=== PATIENT | female | born 1935 | race Caucasian/White ===

== ENCOUNTER 2017-01-28 13:45 | Inpatient (IN) | payer OTHER ==
[2017-01-28 13:49] VITALS: BMI 27.4
--- NOTE | 2017-01-28 14:35 | PDOC ---
History of Present Illness - General Chief Complaint: Back Pain Stated Complaint: BACK PAIN Time Seen by Provider: 01/28/17 14:34 History Source: Patient Exam Limitations: No Limitations - History of Present Illness Initial Comments: 01/28/17 15:13 Patient states had acute onset of pain in her right lower back last night while raking leaves. However states had also not been feeling well, had some chills and fevers last night and was vomiting area is concerned may have a urinary tract infection in addition to back strain. States has not seen a doctor for many years, takes no medications, has taken no meds for relief of same. 01/28/17 15:14 Occurred: reports: yesterday Severity: reports: mild, moderate Pain Location: reports: abdomen, back Method of Injury: Yes: unknown Modifying Factors: improves with: None Past History - Travel Traveled outside of the country in the last 30 days: No Close contact w/someone who was outside of country & ill: No - Past Medical History Allergies/Adverse Reactions: Allergies Allergy/AdvReac Type Severity Reaction Status Date / Time No Known Allergies Allergy Verified 01/28/17 13:52 Home Medications: Ambulatory Orders No Home Medications 0 dose .ROUTE UTDICT 10/14/13 Cephalexin Monohydrate [Keflex -] 500 mg PO Q8H #21 capsule 01/28/17 Other medical history: PATIENT DENIES MEDICAL HX - Immunization History Immunization Up to Date: Yes - Psycho/Social/Smoking Cessation Hx Anxiety: No Suicidal Ideation: No Smoking History: Never smoked Have you smoked in the past 12 months: No Hx Alcohol Use: No Drug/Substance Use Hx: No Substance Use Type: None Trauma Specific PMHX - Complaint Specific PMHX Back Injury: Yes Neck Injury: No Review of Systems - Review of Systems Able to Perform ROS?: Yes Is the patient limited Korean proficient: Yes Constitutional: Yes: Symptoms Reported, See HPI, Chills, Fever, Malaise, Weakness HEENTM: Yes: See HPI. No: Symptoms Reported Respiratory: Yes: See HPI. No: Symptoms reported, Cough ABD/GI: Yes: Symptoms Reported, Nausea, Vomiting (yesterday) Musculoskeletal: Yes: Symptoms Reported, See HPI, Back Pain (back pain, primarily on the right side), Muscle Pain, Muscle Weakness Integumentary: No: Symptoms Reported Neurological: No: Symptoms reported All Other Systems: Reviewed and Negative *Physical Exam - Vital Signs Last Vital Signs Temp Pulse Resp BP Pulse Ox 97.9 F 97 H 18 158/80 95 01/28/17 13:46 01/28/17 13:46 01/28/17 13:46 01/28/17 13:46 01/28/17 13:46 - Physical Exam General Appearance: Yes: Nourished, Appropriately Dressed, Apparent Distress, Mild Distress HEENT: positive: MELODY, Normal ENT Inspection, Normal Voice, TMs Normal, Pharynx Normal Neck: positive: Supple. negative: Lymphadenopathy (R), Lymphadenopathy (L) Respiratory/Chest: positive: Lungs Clear, Normal Breath Sounds Gastrointestinal/Abdominal: positive: Soft. negative: Tender Musculoskeletal: positive: Normal Inspection, CVA Tenderness (right side/but also site of mild MS spasm. Paravertebral, lumbar spine area), Decreased Range of Motion, Muscle Spasm Extremity: positive: Normal Inspection, Tender Integumentary: positive: Dry, Warm, Pale Neurologic: positive: hospitalist II-XII NML intact, Fully Oriented, Alert, Normal Mood/ Affect, Normal Response, Motor Strength 5/5 *DC/Admit/Observation/Transfer Diagnosis at time of Disposition: Urinary tract infection Qualifiers: Urinary tract infection type: acute cystitis Hematuria presence: without hematuria Qualified Code(s): N30.00 - Acute cystitis without hematuria - Discharge Dispostion Disposition: HOME Condition at time of disposition: Stable Admit: No - Patient Instructions Printed Discharge Instructions: DI for Urinary Tract Infection (UTI) Additional Instructions: Rest, drink lots of fluids: Teas, water, soups Avoid contact with others until fevers and symptoms resolved Lots of handwashing and good hygiene Continue [id number] medications for symptomatic relief Tylenol or Motrin for fever and pain Continue all of antibiotics until completed Followup with private physician in one week for repeat urinalysis/reevaluation Return to emergency department for worsened symptoms, fevers, dehydration
[2017-01-28] MEDS ORDERED: CEPHALEXIN MONOHYDRATE 500 MG CAPSULE (UD) PO ONE (15:27)
[2017-01-28] MEDS ORDERED: CEPHALEXIN MONOHYDRATE 500 MG CAPSULE (UD) ONE (15:32)
[2017-01-28 16:30] LABS: URINE APPEARANCE CLEAR; URINE BILIRUBIN NEGATIVE (NEGATIVE); URINE COLOR YELLOW; URINE GLUCOSE (UA) NEGATIVE (NEGATIVE); URINE KETONE TRACE (NEGATIVE); URINE NITRITE NEGATIVE (NEGATIVE); URINE UROBILINOGEN NEGATIVE E.U./dl (0.2-1.0)
[2017-01-28 16:47] LABS: URINE BLOOD 3+ (NEGATIVE); URINE LEUK ESTERASE TRACE (NEGATIVE); URINE PROTEIN 1+ (NEGATIVE)
[2017-01-28 16:50] LABS: URINE MUCUS RARE; URINE RBC 58 /hpf (0-3); URINE WBC 6 /hpf (3-5)
--- NOTE | 2017-01-28 16:55 | PDOC ---
*Physical Exam - Vital Signs Last Vital Signs Temp Pulse Resp BP Pulse Ox 97.9 F 97 H 18 158/80 95 01/28/17 13:46 01/28/17 13:46 01/28/17 13:46 01/28/17 13:46 01/28/17 13:46 - Physical Exam Comments: 01/28/17 20:57 Patient is an 81-year-old female who presented with atraumatic right flank pain radiating to the right lower quadrant with associated nausea and numerous episodes of nonbloody, nonbilious vomiting. Patient had initially been seen in [facility] where she was administered cephalexin for suspected UTI. REVIEW OF SYSTEMS CONSTITUTIONAL: No fever, no chills, no fatigue EYES: No visual changes ENT: No ear pain, no sore throat CARDIOVASCULAR: No chest pain, no palpitations RESPIRATORY: No cough, no SOB GI: + Flank pain; No abdominal pain, no nausea, no vomiting, no constipation, no diarrhea GENITOURINARY: No dysuria, no frequency, no hematuria MUSKULOSKELETAL: No backpain, no joint pain, no myalgias SKIN: No rash NEURO: No headache EXAMINATION CONSTITUTIONAL: Well-appearing; well-nourished; in no apparent distress HEAD: Normocephalic; atraumatic EYES: PERRL; EOM intact ENMT: External appears normal; mm-dry; NECK: Supple; non-tender; no cervical lymphadenopathy CARD: Normal S1, S2; no murmurs, rubs, or gallops RESP: Normal chest excursion with respiration; breath sounds clear and equal bilaterally; no wheezes, rhonchi, or rales ABD: Soft, non-distended; non-tender; no palpable organomegaly, no palpable hernias; + right cva ttp EXT: Normal ROM in all four extremities; non-tender to palpation; distal pulses intact SKIN: Warm, dry, no rash NEURO: No focal neurological deficiencies. <Semaj Thorne - Last Filed: 01/28/17 20:56> - Vital Signs Last Vital Signs Temp Pulse Resp BP Pulse Ox 97.9 F 86 16 145/76 98 01/28/17 13:46 01/28/17 16:30 01/28/17 16:30 01/28/17 16:30 01/28/17 16:30 <Ngoc Mueller - Last Filed: 01/28/17 22:55> Heart Score/ECG Review #1 ECG reviewed & interpreted by me at: 22:37 (Vent Rate: 92 bpm. Normal sinus rhythm. Low voltage QRS. Nonspecific ST abnormality.) <Ngoc Mueller - Last Filed: 01/28/17 22:55> ED Treatment Course - LABORATORY CBC & Chemistry Diagram: 01/28/17 17:30 01/28/17 18:30 - ADDITIONAL ORDERS Additional order review: Laboratory Results 01/28/17 15:45 Urine Color Yellow Urine Appearance Clear Urine pH 6.0 Ur Specific [place] 1.019 Urine Protein 1+ H Urine Glucose (UA) Negative Urine Ketones Trace H Urine Blood 3+ H Urine Nitrite Negative Urine Bilirubin Negative Urine Urobilinogen Negative Ur Leukocyte Esterase Trace H Urine RBC 58 Urine WBC 6 Ur Epithelial Cells Rare Urine Mucus Rare - Medications Given in the ED: ED Medications Discontinued Medications Generic Name Dose Route Start Last Admin Trade Name Freq PRN Reason Stop Dose Admin Cephalexin HCl 500 mg 01/28/17 15:27 01/28/17 15:39 Keflex - PO 01/28/17 15:28 500 mg ONCE ONE Administration <Semaj Thorne - Last Filed: 01/28/17 20:56> - LABORATORY CBC & Chemistry Diagram: 01/28/17 17:30 01/28/17 18:30 - ADDITIONAL ORDERS Additional order review: Laboratory Results 01/28/17 01/28/17 01/28/17 18:30 17:30 15:45 Sodium 138 Cancelled Potassium 4.3 Cancelled Chloride 101 Cancelled Carbon Dioxide 26 Cancelled Anion Gap 11 Cancelled BUN 29 H Cancelled Creatinine 1.6 H Cancelled Creat Clearance w eGFR 30.86 Cancelled Random Glucose 106 Cancelled Calcium 8.9 Cancelled Total Bilirubin 0.8 Cancelled AST 26 Cancelled ALT 27 Cancelled Alkaline Phosphatase 93 Cancelled Total Protein 7.6 Cancelled Albumin 3.9 Cancelled Urine Color Yellow Urine Appearance Clear Urine pH 6.0 Ur Specific [place] 1.019 Urine Protein 1+ H Urine Glucose (UA) Negative Urine Ketones Trace H Urine Blood 3+ H Urine Nitrite Negative Urine Bilirubin Negative Urine Urobilinogen Negative Ur Leukocyte Esterase Trace H Urine RBC 58 Urine WBC 6 Ur Epithelial Cells Rare Urine Mucus Rare 01/28/17 17:30 RBC 4.27 MCV 92.2 MCHC 34.5 RDW 13.4 MPV 9.0 Neutrophils % 80.6 Lymphocytes % 8.9 Monocytes % 10.1 Eosinophils % 0.1 Basophils % 0.3 - Medications Given in the ED: ED Medications Discontinued Medications Generic Name Dose Route Start Last Admin Trade Name Jackie PRN Reason Stop Dose Admin Cephalexin HCl 500 mg 01/28/17 15:27 01/28/17 15:39 Keflex - PO 01/28/17 15:28 500 mg ONCE ONE Administration Sodium Chloride 500 mls @ 500 mls/hr 01/28/17 17:05 01/28/17 17:20 Normal Saline - IV 01/28/17 18:04 500 mls/hr ASDIR STA Administration Dextrose/Sodium Chloride 1,000 mls @ 100 mls/hr 01/28/17 19:45 01/28/17 20:20 D5-1/2ns - IV 100 mls/hr ASDIR CLARK Administration Tamsulosin HCl 0.4 mg 01/28/17 20:56 01/28/17 21:35 Flomax - PO 01/28/17 20:57 0.4 mg ONCE ONE Administration <Ngoc Mueller - Last Filed: 01/28/17 22:55> Medical Decision Making - Medical Decision Making 01/28/17 20:59 Patient is an 81-year-old female who presents with signs and symptoms of right- sided nephrolithiasis. In the ER, patient is afebrile and nontoxic appearing with mild right CVA tenderness to palpation and dry mucous membranes. Urinalysis reveals numerous RBCs per high-power field. CBC reveals minimal leukocytosis with normal differential. CMP reveals elevated BUN/creatinine when compared to previous consistent with acute renal insufficiency. CT that and pelvis reveals a mid ureteral 4 x 3 mm stone with mild hydronephrosis. At this time, I believe patient should be placed in observation for continuous hydration and urological evaluation. Case discussed with Dr. Whitman, he advises administration of Flomax. <Semaj Thorne - Last Filed: 01/28/17 20:56> *DC/Admit/Observation/Transfer - Discharge Dispostion Admit: Yes <Semaj Thorne - Last Filed: 01/28/17 20:56> - Attestations Scribe Attestion: 01/28/17 22:55 Documentation prepared by Ngoc Mueller, acting as medical claims processor for Semaj Thorne MD. <Ngoc Mueller - Last Filed: 01/28/17 22:55> Diagnosis at time of Disposition: Kidney stone on right side, Acute renal insufficiency Nausea & vomiting Qualifiers: Vomiting type: unspecified Vomiting Intractability: non-intractable Qualified Code(s): R11.2 - Nausea with vomiting, unspecified - Discharge Dispostion Condition at time of disposition: Stable - Prescriptions - Referrals - Patient Instructions - Post Discharge Activity
[2017-01-28] MEDS ORDERED: SODIUM CHLORIDE 500 ML IV STA (17:05)
[2017-01-28 17:50] LABS: BASOPHIL 0.3 % (0-2.0); EOSINOPHIL 0.1 % (0-4.5); MCH 31.8 pg (25.7-33.7); MCHC 34.5 g/dl (32.0-36.0); MEAN CELL VOLUME 92.2 fl (80-96); NEUTROPHILS 80.6 % (42.8-82.8); PLATELET COUNT 268 K/MM3 (134-434); RDW 13.4 % (11.6-15.6); WHITE BLOOD COUNT 12.8 K/mm3 (4.0-10.0)
[2017-01-28 19:25] LABS: ALBUMIN 3.9 g/dl (3.4-5.0); BILIRUBIN,TOTAL 0.8 mg/dL (0.2-1.0); CALCIUM 8.9 mg/dL (8.5-10.1); CREATININE 1.6 mg/dL (0.55-1.02); TOT PROT 7.6 g/dl (6.4-8.2)
[2017-01-28] MEDS ORDERED: DEXTROSE 5%-0.45% SALINE 1,000 ML IV SCH (19:45)
[2017-01-28] MEDS ORDERED: TAMSULOSIN HCL 0.4 MG CAP.ER.24H (FP) PO ONE (20:56)
--- NOTE | 2017-01-28 21:11 | PN ---
<Libia Zarate - Last Filed: 01/28/17 21:11> Teaching Attending Note Name of Resident: Isabel Courtney <Dilcia Dwyer - Last Filed: 01/28/17 23:47> Teaching Attending Note ATTENDING PHYSICIAN STATEMENT I saw and evaluated the patient. I reviewed the resident's note and discussed the case with the resident. I agree with the resident's findings and plan as documented. SUBJECTIVE: 81 yo F who presents to the ED with sudden onset of R lower back pain today. Patient notes her back pain has been chronic for the past 5 months, has been intermittent and is alleviated when sitting down. However today, patient states she was raking leaves and immediately experienced sharp back pain, constant, 10/ 10 in severity, radiating to R groin. She reports associated nausea, vomiting ( nonbloody, nonbilious). The patient recalls episodes of chills/cold sweats since last night and reports to the ED for further evaluation. She denies taking any pain medications for relief. She was initially seen in the [facility] for her back pain and was treated with cephalexin for suspected UTI. She denies chest pain, headache or dizziness. She denies fever or constipation. She denies dysuria, frequency, urgency or hematuria. PMHx: Knee pain PSHx: Cataracts surgery Social Hx: Denies toxic habits Allergies: NKA OBJECTIVE: Last Vital Signs Temp Pulse Resp BP Pulse Ox 97.9 F 86 16 145/76 98 01/28/17 13:46 01/28/17 16:30 01/28/17 16:30 01/28/17 16:30 01/28/17 16:30 GENERAL: Awake, alert, and fully oriented, in no acute distress HEENT: Atraumatic. PERRLA, EOMI. Moist mucosa. No JVD. +R Ear with cerumen. + Diminished hearing. LUNGS: No distress, speaks full sentences, clear to auscultation bilaterally HEART: Regular rate and rhythm, normal S1 and S2, no murmurs, rubs or gallops, peripheral pulses normal and equal bilaterally. ABDOMEN: Soft, nontender, normoactive bowel sounds. No guarding, no rebound. No masses EXTREMITIES:+R lumbar tenderness. + L wrist slightly enlarged. Normal inspection , Normal range of motion, no edema. No clubbing or cyanosis. NEUROLOGICAL: Cranial nerves II through XII grossly intact. Normal speech, gait deferred. No focal sensorimotor deficits SKIN: Warm, Dry, normal turgor, no rashes or lesions noted. CBCD WBC 12.8 K/mm3 (4.0-10.0) H 01/28/17 17:30 RBC 4.27 M/mm3 (3.60-5.2) 01/28/17 17:30 Hgb 13.6 GM/dL (10.7-15.3) 01/28/17 17:30 Hct 39.3 % (32.4-45.2) 01/28/17 17:30 MCV 92.2 fl (80-96) 01/28/17:30 MCHC 34.5 g/dl (32.0-36.0) 01/28/17 17:30 RDW 13.4 % (11.6-15.6) 01/28/17 17:30 Plt Count 268 K/MM3 (134-434) 01/28/17 17:30 MPV 9.0 fl (7.5-11.1) 01/28/17 17:30 CMP Sodium 138 mmol/L (136-145) 01/28/17 18:30 Potassium 4.3 mmol/L (3.5-5.1) 01/28/17 18:30 Chloride 101 mmol/L (98-107) 01/28/17 18:30 Carbon Dioxide 26 mmol/L (21-32) 01/28/17 18:30 Anion Gap 11 (8-16) 01/28/17 18:30 BUN 29 mg/dL (7-18) H 01/28/17 18:30 Creatinine 1.6 mg/dL (0.55-1.02) H 01/28/17 18:30 Creat Clearance w eGFR 30.86 (>60) 01/28/17 18:30 Calcium 8.9 mg/dL (8.5-10.1) 01/28/17 18:30 Total Bilirubin 0.8 mg/dL (0.2-1.0) 01/28/17 18:30 AST 26 U/L (15-37) 01/28/17 18:30 ALT 27 U/L (12-78) 01/28/17 18:30 Alkaline Phosphatase 93 U/L (45-117) 01/28/17 18:30 Total Protein 7.6 g/dl (6.4-8.2) 01/28/17 18:30 Albumin 3.9 g/dl (3.4-5.0) 01/28/17 18:30 IMAGING: CT Abdomen and Pelvis Impression: A 4 x 3 mm right mid ureteral calculus is seen with resultant mild hydronephrosis. No other definite urinary tract calculus is identified. Moderate to large hiatal hernia. Very small umbilical hernia containing fat only. Left-sided colonic diverticulosis. Possible cholelithiasis versus representing focal gallbladder wall calcification adjacent to the neck. If clinically indicated correlate with sonography. The partially imaged lower lung ruth demonstrate minimal to mild patchy bilateral interstitial thickening which could be on the basis of small airway disease. There is mild linear discoid atelectasis versus linear parenchymal scarring within the lingula. ASSESSMENT AND PLAN: 81 yo F with PMHx of knee pain who presents with R flank pain and is being admitted for observation. IVF Percocet PRN Urology consult Flomax 1 g Ceftriaxone--daily Repeat CBC and BMP in AM Documentation prepared by Dilcia Dwyer, acting as medical sales for Libia Zarate MD. Problem List - Problems (1) MILA (acute kidney injury) Code(s): N17.9 - ACUTE KIDNEY FAILURE, UNSPECIFIED (2) Nephrolithiasis Code(s): N20.0 - CALCULUS OF KIDNEY (3) Hydronephrosis Code(s): N13.30 - UNSPECIFIED HYDRONEPHROSIS
[2017-01-28] MEDS ORDERED: TAMSULOSIN HCL 0.4 MG CAP.ER.24H (FP) ONE (21:27)
--- NOTE | 2017-01-28 21:47 | HP ---
CHIEF COMPLAINT: right lower back pain PCP: none HISTORY OF PRESENT ILLNESS: 81 yr old woman with no significant medical hx(no physician f/u in 5yrs) presents to ED with continuos right sided lower back pain radiating to groin since 6pm yesterday. It has been intermittent for past 5mo, would go away when she sat down. Since raking the leaves yesterday evening it has been continuos with no alleviating or exacerbating factors. She also had multiple episodes of non-bilious, non-bloody vomiting consisting of food, associated with chills. denies previous episodes of renal calculi or family hx of renal calculi. She takes atleast 2 tums per day for past several months for acid reflex symptoms. Acid relfex is characterized as burning sensation from her stomach up to her chest, occurs mostly when she has acidic foods such as red pasta sauce and citrus food. She is able to lie flat at night without difficulty or symptoms worsening. Denies cough at night or metallic taste in her mouth. She has not been eating or taking care of herself properly since her 5 yrs ago. Last mammo 5 yrs ago, thinks everything was normal. ER course was notable for: (1) diarrhea x3 in ED (2) CT abdomen (3) keflex 500mg po - one dose Recent Travel: none PAST MEDICAL HISTORY: cataracts seasonal allergies PAST SURGICAL HISTORY: cataract surgery x2: 3yrs ago, 4 yrs ago Social History: Smoking: never Alcohol: never Drugs: never Family History: no hx of nephrolithiasis mom and older brother with [place] age 50 mom, and several siblings with DM Allergies No Known Allergies Allergy to medications or food (Verified 01/28/17 13:52) Last Vital Signs Temp Pulse Resp BP Pulse Ox 98.3 F 75 20 115/64 96 01/29/17 06:07 01/29/17 06:07 01/29/17 06:07 01/29/17 06:07 01/28/17 23:38 HOME MEDICATIONS: Home Medications Medication Instructions Recorded No Home Medications 0 dose .ROUTE UTDICT 10/14/13 Cephalexin Monohydrate [Keflex -] 500 mg PO Q8H #21 capsule 01/28/17 Cephalexin Monohydrate [Keflex -] 500 mg PO Q8H #21 capsule 01/28/17 REVIEW OF SYSTEMS CONSTITUTIONAL: Present: chills, Absent: fever, diaphoresis, generalized weakness, malaise, loss of appetite, weight change HEENT: Present: decreased b/l hearing, uses hearing aides Absent: rhinorrhea, nasal congestion, throat pain, throat swelling, difficulty swallowing, mouth swelling, ear pain, eye pain, visual changes CARDIOVASCULAR: Absent: chest pain, syncope, palpitations, irregular heart rate, lightheadedness , peripheral edema RESPIRATORY: Absent: cough, shortness of breath, dyspnea with exertion, orthopnea, wheezing, stridor, hemoptysis GASTROINTESTINAL: Present:vomiting, diarrhea, Absent: abdominal pain, abdominal distension, nausea, constipation, melena, hematochezia GENITOURINARY: Absent: dysuria, frequency, urgency, hesitancy, hematuria, flank pain, genital pain MUSCULOSKELETAL: Present:back pain, Absent: myalgia, arthralgia, joint swelling, neck pain SKIN: Absent: rash, itching, pallor HEMATOLOGIC/IMMUNOLOGIC: Absent: easy bleeding, easy bruising, lymphadenopathy, frequent infections ENDOCRINE: Absent: unexplained weight gain, unexplained weight loss, heat intolerance, cold intolerance NEUROLOGIC: Absent: headache, focal weakness or paresthesias, dizziness, unsteady gait, seizure, mental status changes, bladder or bowel incontinence PSYCHIATRIC: Absent: anxiety, depression, suicidal or homicidal ideation, hallucinations. PHYSICAL EXAMINATION GENERAL: Awake, alert, and fully oriented, in no acute distress. HEAD: Normal with no signs of trauma. EYES: Pupils equal, round and reactive to light, extraocular movements intact, sclera anicteric, conjunctiva clear. No lid lag. EARS, NOSE, THROAT: Ears normal, nares patent, oropharynx clear without exudates. Moist mucous membranes. NECK: Normal range of motion, supple without lymphadenopathy, JVD, or masses. LUNGS: Breath sounds equal, clear to auscultation bilaterally. No wheezes, and no crackles. No accessory muscle use. HEART: Regular rate and rhythm, normal S1 and S2 without murmur, rub or gallop. ABDOMEN: Soft, nontender, not distended, normoactive bowel sounds, no guarding, no rebound, no masses. No hepatomegaly or splenomegaly. MUSCULOSKELETAL: Normal range of motion at all joints. No bony deformities or tenderness. no CVA tenderness. right lower drying machine back tender with deep palpation. UPPER EXTREMITIES: 2+ pulses, warm, well-perfused. No cyanosis. No clubbing. No peripheral edema. LOWER EXTREMITIES: 2+ pulses, warm, well-perfused. No calf tenderness. trace edema in right le. b/l bunions, all toes with thickened yellow nails. no ulcers , skin intact. NEUROLOGICAL: Cranial nerves II-XII intact. Normal speech. PSYCHIATRIC: Cooperative. Good eye contact. Appropriate mood and affect. SKIN: Warm, dry flaky skin, no rashes or lesions noted, normal capillary refill. Laboratory Results - last 24 hr 01/28/17 01/28/17 01/28/17 15:45 17:30 17:30 WBC 12.8 H RBC 4.27 Hgb 13.6 Hct 39.3 MCV 92.2 MCHC 34.5 RDW 13.4 Plt Count 268 MPV 9.0 Neutrophils % 80.6 Lymphocytes % 8.9 Monocytes % 10.1 Eosinophils % 0.1 Basophils % 0.3 Sodium Cancelled Potassium Cancelled Chloride Cancelled Carbon Dioxide Cancelled Anion Gap Cancelled BUN Cancelled Creatinine Cancelled Creat Clearance w eGFR Cancelled Random Glucose Cancelled Calcium Cancelled Total Bilirubin Cancelled AST Cancelled ALT Cancelled Alkaline Phosphatase Cancelled Total Protein Cancelled Albumin Cancelled Urine Color Yellow Urine Appearance Clear Urine pH 6.0 Ur Specific [place] 1.019 Urine Protein 1+ H Urine Glucose (UA) Negative Urine Ketones Trace H Urine Blood 3+ H Urine Nitrite Negative Urine Bilirubin Negative Urine Urobilinogen Negative Ur Leukocyte Esterase Trace H Urine RBC 58 Urine WBC 6 Ur Epithelial Cells Rare Urine Mucus Rare 01/28/17 18:30 WBC RBC Hgb Hct MCV MCHC RDW Plt Count MPV Neutrophils % Lymphocytes % Monocytes % Eosinophils % Basophils % Sodium 138 Potassium 4.3 Chloride 101 Carbon Dioxide 26 Anion Gap 11 BUN 29 H Creatinine 1.6 H Creat Clearance w eGFR 30.86 Random Glucose 106 Calcium 8.9 Total Bilirubin 0.8 AST 26 ALT 27 Alkaline Phosphatase 93 Total Protein 7.6 Albumin 3.9 Urine Color Urine Appearance Urine pH Ur Specific [place] Urine Protein Urine Glucose (UA) Urine Ketones Urine Blood Urine Nitrite Urine Bilirubin Urine Urobilinogen Ur Leukocyte Esterase Urine RBC Urine WBC Ur Epithelial Cells Urine Mucus CT abdomen: A 4 x 3 mm right mid ureteral calculus is seen with resultant mild hydronephrosis. No other definite urinary tract calculus is identified. Moderate to large hiatal hernia. Very small umbilical hernia containing fat only. Left-sided colonic diverticulosis. Possible cholelithiasis versus representing focal gallbladder wall calcification adjacent to the neck. If clinically indicated correlate with sonography. The partially imaged lower lung ruth demonstrate minimal to mild patchy bilateral interstitial thickening which could be on the basis of small airway disease. There is mild linear discoid atelectasis versus linear parenchymal scarring within the lingula. ASSESSMENT/PLAN: 81 yr old woman with no significant past medical hx found to have nephrolithiasis with hydronephrosis placed under observation for dehydration. #Nephrolithiais with hydronephrosis - IVF NS @125ml/hr - flomax - strain urine - keflex 500mg po BID for UTI, pending urine cx - Urology consult Dr. Durand #MILA - likely from renal calculi - IVF - Urine electrolytes, osm #Vomiting - no repeat episodes in ED, feels better, hungry - trial diet #CT findings of gallbladder - outpatient f/u with pcp or GI for possible sonogram as indicated #DVT - SCD's, anticipate short stay #Dispo - f/u with PCP as outpatient Visit type - Emergency Visit Emergency Visit: Yes ED Registration Date: 01/28/17 Care time: The patient presented to the Emergency Department on the above date and was hospitalized for further evaluation of their emergent condition. - New Patient This patient is new to me today: Yes Date on this admission: 01/28/17 - Critical Care Critical Care patient: No
--- NOTE | 2017-01-29 09:19 | EKG ---
Test Reason : Blood Pressure : / mmHG Vent. Rate : 092 BPM Atrial Rate : 092 BPM P-R Int : 204 ms QRS Dur : 066 ms QT Int : 344 ms P-R-T Axes : 072 -01 053 degrees QTc Int : 425 ms NORMAL SINUS RHYTHM LOW VOLTAGE QRS NONSPECIFIC ST ABNORMALITY ABNORMAL ECG WHEN COMPARED WITH ECG OF 12-APR-2011 11:52, QRS DURATION HAS DECREASED Confirmed by STEVEN MARIE MD ([id number]) on 01/29/2017 9:18:44 AM Referred By: Confirmed By:STEVEN MARIE MD
[2017-01-29 10:00] LABS: MCH 32.1 pg (25.7-33.7); MCHC 34.5 g/dl (32.0-36.0); MEAN CELL VOLUME 93.1 fl (80-96); MEAN PLT VOLUME 7.7 fl (7.5-11.1); PLATELET COUNT 218 K/MM3 (134-434); RDW 13.2 % (11.6-15.6); WHITE BLOOD COUNT 6.8 K/mm3 (4.0-10.0)
[2017-01-29 10:31] LABS: CALCIUM 8.9 mg/dL (8.5-10.1); COCKROFT - GAULT 41.4035; CREATININE 1.2 mg/dL (0.55-1.02)
[2017-01-29] MEDS: CEPHALEXIN MONOHYDRATE 500 MG CAPSULE (UD) PO SCH ×2 (10:52→21:31)
[2017-01-29] MEDS: SODIUM CHLORIDE 1,000 ML IV SCH ×2 (11:04→18:44)
[2017-01-29 12:56] LABS: URINE CREATININE 58.3 mg/dL
--- NOTE | 2017-01-29 14:06 | PN ---
Teaching Attending Note Name of Resident: Coery Sánchez ATTENDING PHYSICIAN STATEMENT I saw and evaluated the patient. I reviewed the resident's note and discussed the case with the resident. I agree with the resident's findings and plan as documented. SUBJECTIVE: Patient says pain has improved. OBJECTIVE: Vital Signs Period Temp Pulse Resp BP Sys/Deleon Pulse Ox Last 24 Hr 98.0 F-98.3 F 73-87 16-20 115-167/64-76 96-98 HEART: S1 S2, RRR LUNGS: Clear ABDOMEN: Soft, non-tender, non-distended, normal BS EXTREMITIES: No edema ASSESSMENT AND PLAN: This is an 81-year-old woman with no past medical history who presented to the ER with right flank pain radiating to right groin. 1. Acute kidney injury - Improving - Continue IV fluid - Monitor BUN, creatinine 2. Renal colic secondary to right mid-ureteral stone with mild right hydroureteronephrosis - Continue IV fluid - Pain is controlled - Urology consult 3. Possible biliary colic secondary to cholelithiasis/gallbladder neck stone - Surgery consult
--- NOTE | 2017-01-29 15:25 | PN ---
Physical Exam: SUBJECTIVE: Patient seen and examined Pt is awake, alert and oriented x3 No s/s of distress no more back or flank pain No fever or chills No n/v OBJECTIVE: Vital Signs Period Temp Pulse Resp BP Sys/Deleon Pulse Ox Last 24 Hr 97.9 F-98.3 F 73-87 16-20 115-167/64-73 96-96 GENERAL: The patient is awake, alert, and fully oriented, in no acute distress. HEAD: Normal with no signs of trauma. NECK: Trachea midline, full range of motion, supple. LUNGS: Breath sounds equal, clear to auscultation bilaterally, no wheezes, no crackles, no accessory muscle use. HEART: Regular rate and rhythm, S1, S2 ABDOMEN: Soft, nontender, nondistended, normoactive bowel sounds, no guarding, no rebound, no hepatosplenomegaly, no masses. EXTREMITIES: 2+ pulses, warm, well-perfused, no edema. NEUROLOGICAL:. Normal speech, gait not observed. PSYCH: Normal mood, normal affect. SKIN: Warm, dry, normal turgor, no rashes or lesions noted Laboratory Results - last 24 hr 01/29/17 01/29/17 01/29/17 06:00 06:00 09:15 WBC 6.8 D RBC 3.95 Hgb 12.7 Hct 36.8 MCV 93.1 MCHC 34.5 RDW 13.2 Plt Count 218 MPV 7.7 D Sodium Potassium Chloride Carbon Dioxide Anion Gap BUN Creatinine Random Glucose Calcium Ur Random Sodium Cancelled 33 Ur Random Potassium Cancelled 9.9 Ur Random Chloride Cancelled 17 Urine Creatinine 58.3 01/29/17 09:15 WBC RBC Hgb Hct MCV MCHC RDW Plt Count MPV Sodium 141 Potassium 4.1 Chloride 109 H Carbon Dioxide 22 Anion Gap 10 BUN 24 H Creatinine 1.2 H D Random Glucose 100 Calcium 8.9 Ur Random Sodium Ur Random Potassium Ur Random Chloride Urine Creatinine Active Medications Generic Name Dose Route Start Last Admin Trade Name Freq PRN Reason Stop Dose Admin Cephalexin HCl 500 mg 01/29/17 10:00 01/29/17 10:52 Keflex - PO 500 mg BID CLARK Administration Sodium Chloride 1,000 mls @ 125 mls/hr 01/28/17 22:00 01/29/17 11:04 Normal Saline - IV 125 mls/hr ASDIR [facility] Administration CBC, BMP 01/29/17 09:15 01/29/17 09:15 Laboratory Tests 01/29/17 01/29/17 06:00 06:00 Ur Random Sodium 33 Ur Random Potassium 9.9 Ur Random Chloride Cancelled 17 Urine Creatinine 58.3 ASSESSMENT/PLAN: 81 year old female presented to the ED with complaint of right low back pain that radiate anteriorly accompanied by n/v. Pt was found to have ureteral stone. Ureteral Stone CT abdomen/pelvis showed 4*3mn stone with hydronephrosis NS at 125ml/h Zofran 4mg IV q6h Morphine 2mg IV prn urology Dr Whitman consulted MILA Cr 1.6, BUN 29 on Admission urine lytes, urine creatine FENA 0.48%, less than 1 MILA is due to prerenal IV fluid NS At 125ml/h Cr 1.2, BUN 24, Improved Continue IV fluid UTI Wbc 12.8n UA with trace leuk, negative nitrite, wbc 6 Pt has no dysuria , no hematuria but increased urinary frequency Urine culture pending Placed on Keflex PO BID Continue antibiotic pending urine culture result Cholelithiasis CT showed possible gallbladder stone US gallbladder done and showed impacted stone to neck of gallbladder, gallbladder polyp, calcification of gallbladder wall Gallbladder polyp 8mm, at increased risk for turning into cancer when more than 1 cm Gallbladder wall calcification which may be rt to chronic cholecystitis, worry about porcelain gallbladder which increased the risk for malignancy Either way gallbladder stone, polyp, calcification, definitive treatment is surgery Surgery consulted Dr Lux LEWIS Start pt on Ranitidine PO BID 150mg FEN Fluid NS at 125ml/h Electrolytes: no abnormalities Nutrition: low fat diet DVT prophylaxis: SCD, early ambulation Disposition: Keep in medsurg pending Visit type - Emergency Visit Emergency Visit: Yes ED Registration Date: 01/28/17 Care time: The patient presented to the Emergency Department on the above date and was hospitalized for further evaluation of their emergent condition. - New Patient This patient is new to me today: Yes Date on this admission: 01/29/17 - Critical Care Critical Care patient: No - Discharge Referral Referred to [facility] Med P.C.: No
--- NOTE | 2017-01-29 16:48 | CONSULT ---
Consult Consult Specialty:: Surgery Reason for Consultation:: Abdominal pain - History of Present Illness History of Present Illness: C/O sudden onset of pain on the right side of her back, radiating anteriorly towards the right flank, 2 days ago. Denies any nausea, or vomiting. Wants to eat. - History Source History Provided By: Patient Limitations to Obtaining History: No Limitations - Past Medical History ...: No - Alcohol/Substance Use Hx Alcohol Use: No - Smoking History Smoking history: Never smoked Have you smoked in the past 12 months: No Home Medications - Allergies Allergies/Adverse Reactions: Allergies Allergy/AdvReac Type Severity Reaction Status Date / Time No Known Allergies Allergy Verified 01/28/17 13:52 - Home Medications Home Medications: Ambulatory Orders No Home Medications 0 dose .ROUTE UTDICT 10/14/13 Cephalexin Monohydrate [Keflex -] 500 mg PO Q8H #21 capsule 01/28/17 Cephalexin Monohydrate [Keflex -] 500 mg PO Q8H #21 capsule 01/28/17 Physical Exam Vital Signs: Vital Signs Temperature 97.9 F 01/29/17 14:50 Pulse Rate 80 01/29/17 14:50 Respiratory Rate 20 01/29/17 14:50 Blood Pressure 146/68 01/29/17 14:50 O2 Sat by Pulse Oximetry (%) 96 01/29/17 05:49 Gastrointestinal: Yes: WNL, Normal Bowel Sounds, Soft, Abdomen, Obese Labs: CBC, BMP 01/29/17 09:15 01/29/17 09:15 Imaging - Results Cat Scan: Report Reviewed Ultrasound: Report Reviewed (Right midureteral calculs with mild hydronephrosis , gallbladder calculus at the neck , with a gallbladder polyp.) Problem List - Problems (1) Calculus of gallbladder Code(s): K80.20 - CALCULUS OF GALLBLADDER W/O CHOLECYSTITIS W/O OBSTRUCTION Qualifiers: Cholecystitis presence: without cholecystitis Biliary obstruction: without biliary obstruction Qualified Code(s): K80.20 - Calculus of gallbladder without cholecystitis without obstruction (2) 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 Cholecystectomy later. Patient is explained .
[2017-01-29] MEDS ORDERED: ONDANSETRON 4 MG/2 ML VIAL IVPUSH PRN (17:12)
[2017-01-29] MEDS ORDERED: INFLUENZA VACCINE 45 MCG/0.5 ML (MDV 16-17) IM ONE (21:00)
[2017-01-29] MEDS: RANITIDINE HCL 150 MG TABLET (FP) PO SCH (21:31)
[2017-01-30] MEDS: SODIUM CHLORIDE 1,000 ML IV SCH ×2 (01:16→10:07)
--- NOTE | 2017-01-30 09:14 | PN ---
Teaching Attending Note Name of Resident: Corey Sánchez ATTENDING PHYSICIAN STATEMENT I saw and evaluated the patient. I reviewed the resident's note and discussed the case with the resident. I agree with the resident's findings and plan as documented. SUBJECTIVE: Patient says she had right-sided abdominal pain radiating across her abdomen overnight. OBJECTIVE: Vital Signs Period Temp Pulse Resp BP Sys/Deleon Pulse Ox Last 24 Hr 97.9 F-98.4 F 80-86 20-20 138-155/68-71 96-96 HEART: S1 S2, RRR LUNGS: Clear ABDOMEN: Soft, non-tender, non-distended, normal BS EXTREMITIES: No edema ASSESSMENT AND PLAN: This is an 81-year-old woman with no past medical history who presented to the ER with right flank pain radiating to right groin. 1. Acute kidney injury - Improving - Continue IV fluid - Monitor BUN, creatinine 2. Renal colic secondary to right mid-ureteral stone with mild right hydroureteronephrosis and possible UTI - Continue IV fluid - Pain is controlled - Urine culture contaminated - Continue Keflex - Awaiting urology consult 3. Possible biliary colic secondary to cholelithiasis/gallbladder neck stone and gallbladder polyp - Surgery consult appreciated - Plan for cholecystectomy
[2017-01-30] MEDS: CEPHALEXIN MONOHYDRATE 500 MG CAPSULE (UD) PO SCH ×2 (10:03→21:11)
[2017-01-30] MEDS: RANITIDINE HCL 150 MG TABLET (FP) PO SCH ×2 (10:03→21:11)
--- NOTE | 2017-01-30 12:44 | PN ---
Physical Exam: SUBJECTIVE: Patient seen and examined Pt say she is feeling well this morning But had right flank/ abdominal pain during the night in right inguinal region the pain was not too severe and pt declined pain medication NO fever or chills No n/v pt tolerating food well OBJECTIVE: Vital Signs Period Temp Pulse Resp BP Sys/Deleon Pulse Ox Last 24 Hr 98.0 F-98.4 F 84-86 20-20 138-155/68-71 96-96 GENERAL: The patient is awake, alert, and fully oriented, in no acute distress. HEAD: Normal with no signs of trauma. NECK: Trachea midline, full range of motion, supple. LUNGS: Breath sounds equal, clear to auscultation bilaterally, no wheezes, no crackles, no accessory muscle use. HEART: Regular rate and rhythm, S1, S2 ABDOMEN: Soft, nontender, nondistended, normoactive bowel sounds, no guarding, no rebound, no hepatosplenomegaly, no masses. EXTREMITIES: 2+ pulses, warm, well-perfused, no edema. NEUROLOGICAL:. Normal speech, gait not observed. PSYCH: Normal mood, normal affect. SKIN: Warm, dry, normal turgor, no rashes or lesions noted Active Medications Generic Name Dose Route Start Last Admin Trade Name Freq PRN Reason Stop Dose Admin Cephalexin HCl 500 mg 01/29/17 10:00 01/30/17 10:03 Keflex - PO 500 mg BID CLARK Administration Sodium Chloride 1,000 mls @ 75 mls/hr 01/30/17 08:08 01/30/17 10:07 Normal Saline - IV 75 mls/hr ASDIR CLARK Administration Morphine Sulfate 2 mg 01/29/17 17:13 Morphine Injection - IVPUSH Q4H PRN PAIN Ondansetron HCl 4 mg 01/29/17 17:12 Zofran Injection IVPUSH Q6H PRN NAUSEA AND/OR VOMITING Ranitidine HCl 150 mg 01/29/17 22:00 01/30/17 10:03 Zantac - PO 150 mg BID CLARK Administration CBC, BMP 01/29/17 09:15 01/29/17 09:15 ASSESSMENT/PLAN: 81 year old female presented to the ED with complaint of right low back pain that radiate anteriorly accompanied by n/v. Pt was found to have ureteral stone. Ureteral Stone CT abdomen/pelvis showed 4*3mn stone with hydronephrosis NS at 75ml/h Zofran 4mg IV q6h Morphine 2mg IV prn urology Dr Whitman consulted Abdominal KUB to see if stone is moving, passing MILA Cr 1.6, BUN 29 on Admission urine lytes, urine creatine FENA 0.48%, less than 1 MILA is due to prerenal IV fluid NS At 75ml/h Cr 1.2, BUN 24, Improved Continue IV fluid UTI Wbc 12.8 UA with trace leuk, negative nitrite, wbc 6 on admission Pt has no dysuria , no hematuria but increased urinary frequency Urine culture contaminated WBC 6.8 on keflex Continue antibiotic for [address] showed possible gallbladder stone US gallbladder done and showed impacted stone to neck of gallbladder, gallbladder polyp, calcification of gallbladder wall Gallbladder polyp 8mm, at increased risk for turning into cancer when more than 1 cm Gallbladder wall calcification which may be rt to chronic cholecystitis, worry about porcelain gallbladder which increased the risk for malignancy Either way gallbladder stone, polyp, calcification, definitive treatment is surgery Surgery consulted Dr Wasserman Pt to have cholecystectomy next week cardiology consult for clearance GERD Start pt on Ranitidine PO BID 150mg FEN Fluid NS at 75ml/h Electrolytes: no abnormalities Nutrition: low fat diet DVT prophylaxis: SCD, early ambulation Disposition: Keep in medsur pending urology eval Visit type - Emergency Visit Emergency Visit: Yes ED Registration Date: 01/29/17 Care time: The patient presented to the Emergency Department on the above date and was hospitalized for further evaluation of their emergent condition. - New Patient This patient is new to me today: Yes - Critical Care Critical Care patient: No - Discharge Referral Referred to [facility] Med P.C.: No
--- NOTE | 2017-01-30 12:51 | CON.GU ---
Consult Consult Specialty:: Urology - History of Present Illness History of Present Illness: 81 yo female w 2 days right flank pain and nausea No f/c/ns voiding freely - History Source History Provided By: Patient, Medical Record - Past Medical History ...: No - Alcohol/Substance Use Hx Alcohol Use: No - Smoking History Smoking history: Never smoked Have you smoked in the past 12 months: No Home Medications - Allergies Allergies/Adverse Reactions: Allergies Allergy/AdvReac Type Severity Reaction Status Date / Time No Known Allergies Allergy Verified 01/28/17 13:52 - Home Medications Home Medications: Ambulatory Orders No Home Medications 0 dose .ROUTE UTDICT 10/14/13 Cephalexin Monohydrate [Keflex -] 500 mg PO Q8H #21 capsule 01/28/17 Cephalexin Monohydrate [Keflex -] 500 mg PO Q8H #21 capsule 01/28/17 Review of Systems - Review of Systems Genitourinary: reports: Flank Pain, Frequency, Urgency Physical Exam- Vital Signs: Vital Signs Temperature 98.0 F 01/30/17 06:00 Pulse Rate 84 01/30/17 06:00 Respiratory Rate 20 01/30/17 06:00 Blood Pressure 138/68 01/30/17 06:00 O2 Sat by Pulse Oximetry (%) 96 01/30/17 05:00 Constitutional: Yes: No Distress Cardiovascular: Yes: Regular Rate and Rhythm Respiratory: Yes: WNL Gastrointestinal: Yes: Soft (mild right CVAT) Imaging - Results Cat Scan: Report Reviewed Problem List - Problems (1) Kidney stone on right side Assessment/Plan: 81 yo female w right renal colic and 4 mm midureteral stone. pain improved Wbc improved Will observe give 2 more days to pass Cont iv abx Strain urine KUB Code(s): N20.0 - CALCULUS OF KIDNEY
--- NOTE | 2017-01-30 14:09 | PN ---
Progress Note, Physician - Current Medication List Current Medications: Active Medications Cephalexin HCl (Keflex -) 500 mg PO BID [facility] Last Admin: 01/30/17 10:03 Dose: 500 mg Sodium Chloride (Normal Saline -) 1,000 mls @ 75 mls/hr IV ASDIR [facility] Last Admin: 01/30/17 10:07 Dose: 75 mls/hr Morphine Sulfate (Morphine Injection -) 2 mg IVPUSH Q4H PRN PRN Reason: PAIN Ondansetron HCl (Zofran Injection) 4 mg IVPUSH Q6H PRN PRN Reason: NAUSEA AND/OR VOMITING Ranitidine HCl (Zantac -) 150 mg PO BID [facility] Last Admin: 01/30/17 10:03 Dose: 150 mg - Objective Vital Signs: Vital Signs Temperature 98.0 F 01/30/17 06:00 Pulse Rate 84 01/30/17 06:00 Respiratory Rate 20 01/30/17 06:00 Blood Pressure 138/68 01/30/17 06:00 O2 Sat by Pulse Oximetry (%) 96 01/30/17 05:00 Problem List - Problems (1) Calculus of gallbladder Code(s): K80.20 - CALCULUS OF GALLBLADDER W/O CHOLECYSTITIS W/O OBSTRUCTION Qualifiers: Cholecystitis presence: without cholecystitis Biliary obstruction: without biliary obstruction Qualified Code(s): K80.20 - Calculus of gallbladder without cholecystitis without obstruction (2) 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 No nausea, no vomiting. Abdomen is soft , not tender. note noted , expect the ureteral calculus to pass spontaneously. She also has a gallbladder calculus at the neck with a 8 mm. polyp. Patient is made aware of the need for cholecystectomy, for gallbladder calculus and polyp. She will be scheduled for surgery on 02/01/2017.
[2017-01-30] MEDS: morphine CARPU-JECT 2 MG/1 ML DISP.SYRIN IVPUSH PRN (21:11)
[2017-01-31] MEDS: SODIUM CHLORIDE 1,000 ML IV SCH (02:30)
[2017-01-31] MEDS: morphine CARPU-JECT 2 MG/1 ML DISP.SYRIN IVPUSH PRN ×2 (06:13→09:01)
--- NOTE | 2017-01-31 08:56 | PN ---
Physical Exam: SUBJECTIVE: Patient seen and examined. She is having right low back pain radiating to her right groin with nausea. OBJECTIVE: Vital Signs Period Temp Pulse Resp BP Sys/Deleon Pulse Ox Last 24 Hr 97.2 F-98.7 F 71-75 18-20 123-158/50-74 96-96 GENERAL: The patient is awake, alert, and fully oriented, in no acute distress. LUNGS: Breath sounds equal, clear to auscultation bilaterally, no wheezes, no crackles, no accessory muscle use. HEART: Regular rate and rhythm, S1, S2 without murmur, rub or gallop. ABDOMEN: Soft, nontender, nondistended, normoactive bowel sounds, no guarding, no rebound, no hepatosplenomegaly, no masses. EXTREMITIES: 2+ pulses, warm, well-perfused, no edema. Active Medications Generic Name Dose Route Start Last Admin Trade Name Freq PRN Reason Stop Dose Admin Cephalexin HCl 500 mg 01/29/17 10:00 01/30/17 21:11 Keflex - PO 500 mg BID CLARK Administration Sodium Chloride 1,000 mls @ 75 mls/hr 01/30/17 08:08 01/31/17 02:30 Normal Saline - IV 75 mls/hr ASDIR CLARK Administration Morphine Sulfate 2 mg 01/29/17 17:13 01/31/17 06:13 Morphine Injection - IVPUSH 2 mg Q4H PRN Administration PAIN Ondansetron HCl 4 mg 01/29/17 17:12 01/31/17 06:27 Zofran Injection IVPUSH 4 mg Q6H PRN Administration NAUSEA AND/OR VOMITING Ranitidine HCl 150 mg 01/29/17 22:00 01/30/17 21:11 Zantac - PO 150 mg BID CLARK Administration ASSESSMENT/PLAN: This is an 81-year-old woman with no past medical history who presented to the ER with right flank pain radiating to right groin. 1. Acute kidney injury - Improving - Continue IV fluid - Monitor BUN, creatinine 2. Renal colic secondary to right ureteral stone with mild right hydroureteronephrosis and possible UTI - KUB 01/30 showed proximal right ureteral stone - Continue IV fluid - Continue morphine as needed for pain, Zofran as needed for nausea - Urine culture contaminated - Continue Keflex 3. Biliary colic secondary to cholelithiasis/gallbladder neck stone and gallbladder polyp - Plan for cholecystectomy tomorrow Visit type - Emergency Visit Emergency Visit: Yes ED Registration Date: 01/29/17 Care time: The patient presented to the Emergency Department on the above date and was hospitalized for further evaluation of their emergent condition. - New Patient This patient is new to me today: No - Critical Care Critical Care patient: No - Discharge Referral Referred to [facility] Med P.C.: No
[2017-01-31] MEDS ORDERED: morphine CARPU-JECT 2 MG/1 ML DISP.SYRIN IVPUSH PRN (09:01)
[2017-01-31] MEDS: CEPHALEXIN MONOHYDRATE 500 MG CAPSULE (UD) PO SCH ×2 (10:07→21:25)
[2017-01-31] MEDS: RANITIDINE HCL 150 MG TABLET (FP) PO SCH ×2 (10:07→21:25)
--- NOTE | 2017-01-31 10:39 | CON.CARD ---
Cardiology Consult (text) - Consultation Consultation Note: CC: pre-operative clearance 81 yo with no known pmhx (no recent PCP follow up) p/w right sided lower back pain radiating to groin. pain intermittent x 5 mo. + nausea/vomiting, diarrhea + chills. + gerd stable baca walking up one flight of stairs and OA pain of LE. no orthopnea, pnd , le edema, cp, palps, bleeding transient neurologic symptoms. denies prior h/o cva/Tia, CAD, CHF, dm, ckd PAST MEDICAL HISTORY: cataracts seasonal allergies PAST SURGICAL HISTORY: cataract surgery x2: 3yrs ago, 4 yrs ago Social History: Smoking: never Alcohol: never Drugs: never Family History: mom and older brother with GA age 50 ros: per hpi, additionally no h/a, cough, congestion, rashes, visual disturbances Ambulatory Orders No Home Medications 0 dose .ROUTE UTDICT 10/14/13 Cephalexin Monohydrate [Keflex -] 500 mg PO Q8H #21 capsule 01/28/17 Cephalexin Monohydrate [Keflex -] 500 mg PO Q8H #21 capsule 01/28/17 Current Medications Cephalexin HCl (Keflex -) 500 mg PO BID [facility] Last Admin: 01/31/17 10:07 Dose: 500 mg Sodium Chloride (Normal Saline -) 1,000 mls @ 75 mls/hr IV ASDIR [facility] Last Admin: 01/31/17 02:30 Dose: 75 mls/hr Morphine Sulfate (Morphine Injection -) 2 mg IVPUSH Q3H PRN PRN Reason: PAIN Ondansetron HCl (Zofran Injection) 4 mg IVPUSH Q6H PRN PRN Reason: NAUSEA AND/OR VOMITING Last Admin: 01/31/17 06:27 Dose: 4 mg Ranitidine HCl (Zantac -) 150 mg PO BID [facility] Last Admin: 01/31/17 10:07 Dose: 150 mg Vital Signs - 24 hr 01/30/17 01/30/17 01/30/17 13:00 15:09 17:24 Temperature 97.2 F L 98.6 F Pulse Rate 71 75 Respiratory 20 18 20 Rate Blood Pressure 139/50 123/62 O2 Sat by Pulse 96 Oximetry (%) 01/30/17 01/31/17 21:00 05:00 Temperature 98.0 F 98.7 F Pulse Rate 74 74 Respiratory 20 18 Rate Blood Pressure 125/60 158/66 O2 Sat by Pulse 96 Oximetry (%) Intake & Output 01/29/17 01/30/17 01/31/17 02/01/17 07:59 07:59 07:59 07:59 Intake Total 1999 Output Total 1150 Balance -1150 1999 Weight 160 lb NAD, calm JVD flat, neck supple trace crackles at left base, nl effort rrr nl s1, s2, no m/r/g + bs soft nt nd ext without e/c/c + dp/pt aaox3 no jaundice, diaphoresis CBC, BMP 01/29/17 09:15 01/29/17 09:15 EKG: sr, av delay. non-specific t wave abnormality CXR: linear scarring, atelectasis ast left base. Pre-operative clearance - no active cardiac issues. no further CV testing needed prior to surgyer. RCRI 0. Low risk for eryn-operative CV events. Pt counseled on risk. - pain control per pmd/surgery.
--- NOTE | 2017-01-31 16:49 | PN ---
Progress Note, Physician - Current Medication List Current Medications: Active Medications Cephalexin HCl (Keflex -) 500 mg PO BID [facility] Last Admin: 01/31/17 10:07 Dose: 500 mg Sodium Chloride (Normal Saline -) 1,000 mls @ 75 mls/hr IV ASDIR [facility] Last Admin: 01/31/17 02:30 Dose: 75 mls/hr Morphine Sulfate (Morphine Injection -) 2 mg IVPUSH Q3H PRN PRN Reason: PAIN Ondansetron HCl (Zofran Injection) 4 mg IVPUSH Q6H PRN PRN Reason: NAUSEA AND/OR VOMITING Last Admin: 01/31/17 06:27 Dose: 4 mg Ranitidine HCl (Zantac -) 150 mg PO BID [facility] Last Admin: 01/31/17 10:07 Dose: 150 mg - Objective Vital Signs: Vital Signs Temperature 98.4 F 01/31/17 15:03 Pulse Rate 71 01/31/17 15:03 Respiratory Rate 18 01/31/17 15:03 Blood Pressure 140/78 01/31/17 09:00 O2 Sat by Pulse Oximetry (%) 96 01/31/17 09:00 Problem List - Problems (1) Calculus of gallbladder Code(s): K80.20 - CALCULUS OF GALLBLADDER W/O CHOLECYSTITIS W/O OBSTRUCTION Qualifiers: Cholecystitis presence: without cholecystitis Biliary obstruction: without biliary obstruction Qualified Code(s): K80.20 - Calculus of gallbladder without cholecystitis without obstruction (2) 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 Gallbladder polyp, and cholelithiasis. Abdominal pain. Scheduled for surgery tomorrow.
[2017-02-01] MEDS: SODIUM CHLORIDE 1,000 ML IV SCH ×3 (04:05→09:26)
[2017-02-01 07:40] LABS: BASOPHIL 0.5 % (0-2.0); EOSINOPHIL 1.4 % (0-4.5); MCH 31.6 pg (25.7-33.7); MCHC 33.6 g/dl (32.0-36.0); MEAN CELL VOLUME 94.1 fl (80-96); MEAN PLT VOLUME 8.1 fl (7.5-11.1); NEUTROPHILS 72.9 % (42.8-82.8); PLATELET COUNT 148 K/MM3 (134-434); RDW 13.1 % (11.6-15.6)
[2017-02-01 07:44] LABS: INR 1.12 (0.82-1.09); PROTHROMBIN TIME (PATIENT) 12.4 SEC (9.98-11.88)
[2017-02-01 07:46] LABS: ACTIVATED PTT 28.1 SECONDS (26.9-34.4)
[2017-02-01 08:14] LABS: BILIRUBIN,DIRECT 0.2 mg/dL (0.0-0.2); CALCIUM 8.5 mg/dL (8.5-10.1); COCKROFT - GAULT 35.4875; CREATININE 1.4 mg/dL (0.55-1.02)
[2017-02-01 08:17] LABS: BILIRUBIN,TOTAL 0.8 mg/dL (0.2-1.0); TOT PROT 5.6 g/dl (6.4-8.2)
[2017-02-01] MEDS ORDERED: PT OWN MED DRAWER 7, Y5N ONE (09:15)
[2017-02-01] MEDS: CEPHALEXIN MONOHYDRATE 500 MG CAPSULE (UD) PO SCH ×2 (09:25→21:14)
[2017-02-01] MEDS: RANITIDINE HCL 150 MG TABLET (FP) PO SCH ×2 (09:26→21:14)
--- NOTE | 2017-02-01 12:11 | PN ---
Physical Exam: SUBJECTIVE: Patient seen and examined Pt is anxious about surgery Pt is still complaining of right low quadrant pain and right low back/flank pain No fever chills No n/v No hematuria no dysuria OBJECTIVE: Vital Signs Period Temp Pulse Resp BP Sys/Deleon Pulse Ox Last 24 Hr 98.1 F-98.4 F 62-78 18-20 131-166/47-65 96 GENERAL: The patient is awake, alert, and fully oriented, in no acute distress. HEAD: Normal with no signs of trauma. LUNGS: Breath sounds equal, clear to auscultation bilaterally, no wheezes, no crackles, no accessory muscle use. HEART: Regular rate and rhythm, S1, S2 ABDOMEN: Soft, right lower tenderness, right lower back/CVA tenderness. Abdoen non-distended, normoactive bowel sounds, no guarding, no rebound, no hepatosplenomegaly, no masses. EXTREMITIES: 2+ pulses, warm, well-perfused, no edema. NEUROLOGICAL:. Normal speech, gait not observed. PSYCH: Normal mood, normal affect. SKIN: Warm, dry, normal turgor, no rashes or lesions noted Laboratory Results - last 24 hr 02/01/17 02/01/17 02/01/17 06:25 06:25 06:25 WBC 8.0 RBC 3.40 L Hgb 10.7 D Hct 32.0 L MCV 94.1 MCHC 33.6 RDW 13.1 Plt Count 148 D MPV 8.1 Neutrophils % 72.9 Lymphocytes % 13.2 D Monocytes % 12.0 H Eosinophils % 1.4 D Basophils % 0.5 INR 1.12 PTT (Actin FS) 28.1 Sodium 143 Potassium 4.2 Chloride 113 H Carbon Dioxide 20 L Anion Gap 10 BUN 19 H D Creatinine 1.4 H Random Glucose 88 Calcium 8.5 Total Bilirubin 0.8 Direct Bilirubin 0.2 AST 27 ALT 31 Alkaline Phosphatase 63 D Total Protein 5.6 L D Albumin 3.0 L D Active Medications Generic Name Dose Route Start Last Admin Trade Name Freq PRN Reason Stop Dose Admin Cephalexin HCl 500 mg 01/29/17 10:00 02/01/17 09:25 Keflex - PO Not Given BID CLARK Sodium Chloride 1,000 mls @ 75 mls/hr 01/30/17 08:08 02/01/17 09:26 Normal Saline - IV Not Given ASDIR CLARK Morphine Sulfate 2 mg 01/31/17 09:01 Morphine Injection - IVPUSH Q3H PRN PAIN Ondansetron HCl 4 mg 01/29/17 17:12 01/31/17 06:27 Zofran Injection IVPUSH 4 mg Q6H PRN Administration NAUSEA AND/OR VOMITING Ranitidine HCl 150 mg 01/29/17 22:00 02/01/17 09:26 Zantac - PO Not Given BID CLARK CBC, BMP 02/01/17 06:25 02/01/17 06:25 ASSESSMENT/PLAN: 81 year old female presented to the ED with complaint of right low back pain that radiate anteriorly accompanied by n/v. Pt was found to have ureteral stone and Gallstone. Cholelithiasis CT showed possible gallbladder stone US gallbladder done and showed impacted stone to neck of gallbladder, gallbladder polyp, calcification of gallbladder wall Gallbladder polyp 8mm, at increased risk for turning into cancer when more than 1 cm Gallbladder wall calcification which may be rt to chronic cholecystitis, worry about porcelain gallbladder which increased the risk for malignancy Either way gallbladder stone, polyp, calcification, definitive treatment is surgery Surgery consulted Dr Wasserman cardiology consult for clearance Pt to have cholecystectomy today Ureteral Stone CT abdomen/pelvis showed 4*3mn stone with hydronephrosis NS at 75ml/h Zofran 4mg IV q6h Morphine 2mg IV prn urology Dr Whitman consulted waiting for stone to pass MILA Cr 1.6, BUN 29 on Admission urine lytes, urine creatine, FENA 0.48%, less than 1 MILA is due to prerenal IV fluid NS At 75ml/h Cr 1.4, BUN 19 Continue IV fluid UTI Wbc 12.8 UA with trace leuk, negative nitrite, wbc 6 on admission Pt has no dysuria , no hematuria but increased urinary frequency Urine culture contaminated WBC 6.8 on keflex day 3 Continue antibiotic for 7 days GERD Start pt on Ranitidine PO BID 150mg FEN Fluid NS at 75ml/h Electrolytes: no abnormalities Nutrition: low fat diet DVT prophylaxis: SCD, early ambulation Disposition: Keep in [facility], [facility] G cholecytectomy today Visit type - Emergency Visit Emergency Visit: Yes ED Registration Date: 01/29/17 Care time: The patient presented to the Emergency Department on the above date and was hospitalized for further evaluation of their emergent condition. - New Patient This patient is new to me today: Yes - Critical Care Critical Care patient: No - Discharge Referral Referred to [facility] No
[2017-02-01] MEDS ORDERED: LIDOCAINE HCL 2% 100 MG/5 ML DISP.SYRIN ONE (12:42)
[2017-02-01] MEDS ORDERED: PROPOFOL 20 ML ONE (12:43)
[2017-02-01] MEDS ORDERED: MIDAZOLAM HCL 2 MG/2 ML SINGLE DOSE VIAL ONE (12:43)
[2017-02-01] MEDS ORDERED: ROCURONIUM BROMIDE 50 MG/5 ML VIAL ONE (12:43)
[2017-02-01] MEDS ORDERED: SUCCINYLCHOLINE CHLORIDE 200 MG/10 ML VIAL ONE (12:55)
[2017-02-01] MEDS ORDERED: ceFAZolin SODIUM 1 GM VIAL IVPB ONE (13:05)
[2017-02-01] MEDS ORDERED: GLYCOPYRROLATE 0.2 MG/1 ML VIAL ONE ×2 (13:16→13:54)
[2017-02-01] MEDS ORDERED: LABETALOL HCL 5 MG/1 ML (100MG/20 ML VIAL) ONE (13:33)
[2017-02-01] MEDS ORDERED: NEOSTIGMINE METHYLSULFATE 0.5 MG/ML - 10 ML MDV ONE (13:54)
[2017-02-01] MEDS ORDERED: BUPIVACAINE HCL/PF 0.5% (5MG/ML) 10 ML VIAL ONE (13:56)
[2017-02-01] MEDS ORDERED: BUPIVACAINE HCL/PF (5 MG/ML) 30 ML VIAL IJ ONE (14:05)
--- NOTE | 2017-02-01 14:32 | OP ---
Operative Note - Note: Operative Date: 02/01/17 Pre-Operative Diagnosis: Cholelithiasis, cholecystitis, gallbladder polyp. Abdominal pain. Operation: Laparoscopic cholecystectomy. Findings: Acutely distended obstructed gallbladder with calculus impacted in the cystic duct. Bile aspirated and found to be clear , suggestive of cystic duct obstruction and hydrops of the gallbladder. Multiple omental and peritoneal adhesions around the gallbladder lysed to expose the gallbladder. Post-Operative Diagnosis: Other (Cholelithiasis with cystic duct obstruction , cholecystitis , hydrops of the gallbladder. Omental and peritoneal adhesions all around the gallbladder.) Surgeon: Ashli Wasserman Pitting Machine Operator: Shannon Uribe Anesthesiologist/HOSPITAL CLERK: Manuel Reese Anesthesia: General Specimens Removed: Gallbladder. Estimated Blood Loss (mls): 5 Operative Report Dictated: Yes
[2017-02-01] MEDS ORDERED: OXYCODONE/APAP 5/325MG COMBO TABLET PO PRN (14:35)
--- NOTE | 2017-02-01 14:35 | SURG ---
Surgery Environmental Sampling Technician Note Environmental Sampling Technician: Shannon Uribe PA-C Date of Service: 02/01/17 Diagnosis: Cholelithiasis, cholecystitis, gallbladder polyp Procedure: Laparoscopic cholecystectomy I was present for the entirety of the operative procedure. For further detail, please refer to operative report. Visit type - Case Type Case Type: ED Admission - New patient This patient is new to me today: Yes Date on this admission: 02/01/17
[2017-02-01] MEDS ORDERED: ACETAMINOPHEN 325 MG TABLET (FP) PO PRN (14:41)
[2017-02-01] MEDS ORDERED: morphine CARPU-JECT 2 MG/1 ML DISP.SYRIN IVPUSH PRN (15:15)
[2017-02-01] MEDS ORDERED: ONDANSETRON 4 MG/2 ML VIAL IVPUSH PRN (15:15)
--- NOTE | 2017-02-01 18:51 | PN ---
Teaching Attending Note Name of Resident: Corey Sánchez ATTENDING PHYSICIAN STATEMENT I saw and evaluated the patient. I reviewed the resident's note and discussed the case with the resident. I agree with the resident's findings and plan as documented. SUBJECTIVE: No complaints. OBJECTIVE: Vital Signs Period Temp Pulse Resp BP Sys/Deleon Pulse Ox Last 24 Hr 97.0 F-98.4 F 52-77 16-20 111-166/47-80 91-97 GENERAL: The patient is awake, alert, and fully oriented, in no acute distress. LUNGS: Breath sounds equal, clear to auscultation bilaterally, no wheezes, no crackles, no accessory muscle use. HEART: Regular rate and rhythm, S1, S2 without murmur, rub or gallop. ABDOMEN: Soft, nontender, mild distention, normoactive bowel sounds, no guarding , no rebound, no hepatosplenomegaly, no masses. EXTREMITIES: 2+ pulses, warm, well-perfused, no edema. ASSESSMENT AND PLAN: This is an 81-year-old woman with no past medical history who presented to the ER with right flank pain radiating to right groin. 1. Renal colic secondary to right ureteral stone with mild right hydroureteronephrosis and possible UTI - KUB 01/30 showed proximal right ureteral stone - Continue IV fluid - Continue morphine as needed for pain, Zofran as needed for nausea - Urine culture contaminated - Continue Keflex 2. Acute cholecystitis secondary to cholelithiasis with cystic duct obstruction , hydrops gallbladder, gallbladder polyp - s/p laparoscopic cholecystectomy and lysis of adhesions today 3. Probable stage 3 CKD - Creatinine stable
[2017-02-02] MEDS: oxyCODONE HCL 5 MG TABLET PO PRN (04:38)
--- NOTE | 2017-02-02 08:23 | OP ---
DATE OF OPERATION: 02/01/2017 PREOPERATIVE DIAGNOSIS: 1. Cholelithiasis, cholecystitis, gallbladder polyp. 2. Abdominal pain. 3. Right ureteral calculus. 4. Obesity. POSTOPERATIVE DIAGNOSIS: 1. Cholelithiasis with cystic duct obstruction, cholecystitis, hydrops of the gallbladder. 2. Omental and peritoneal adhesions all around the gallbladder. OPERATIVE PROCEDURE: Laparoscopic cholecystectomy and lysis of adhesions. SURGEON: Terence Wasserman MD POLE TESTER: CODY Dobson ANESTHESIA: General anesthesia. OPERATIVE DESCRIPTION: This 81-year-old woman who was admitted with abdominal pain was found to have calculus in the neck of the gallbladder and a polyp of the gallbladder. Patient was brought in for laparoscopic cholecystectomy. Risks, benefits, and complications were discussed with the patient. Consent obtained. Patient was brought to the operating room. She had been on antibiotics prior to the procedure. General anesthesia was administered. The abdomen was painted and draped. Time-out was called. Incision was made in the infraumbilical portion of the umbilicus, which was deepened through the skin and subcutaneous tissue and the linea alba. The peritoneum was incised, and the 10-12-cm laparoscopic trocar of the Kin type was introduced into the abdominal cavity. The abdomen was inflated with carbon dioxide at 6 L per minute with a maximum intraabdominal pressure of 15 mmHg. A 5-mm camera was introduced into the abdominal cavity. Under direct vision, two 5-mm trocars were inserted in the right upper quadrant of the abdomen, 1 along the anterior axillary line and another along the midclavicular line after making a small incision in the skin. The trocar was introduced under direct vision, the camera into the abdominal cavity. The 5-mm trocar was inserted in the midline of the subxiphoid area. This entered the abdominal cavity to the right of the falciform ligament. The gallbladder was then visualized. It was quite distended. It was therefore emptied with the trocar inserted through the subxiphoid port. The bile in the gallbladder was clear fluid suggesting obstruction of the cystic duct. Cystic duct was noted in the infundibulum which was impacted. The gallbladder was then grasped at the fundus with the grasper through the lateral 5-mm port and retracted cephalad and laterally. The multiple adhesions of the omentum around the gallbladder were carefully lysed until the infundibulum of the cystic duct was visualized. The cystic duct was then isolated circumferentially and divided between clips. The cystic artery was also brought into view and was likewise divided with end-clips. The peritoneal reflection on either side of the gallbladder was then incised, and the gallbladder dissected out of the gallbladder bed all the way to the fundus of the gallbladder. Cholecystectomy was thus accomplished. There was no bleeding from the gallbladder bed and no bile leak. An EndoCatch was then introduced through the umbilical port, the camera being switched to the subxiphoid port. The gallbladder was placed with EndoCatch and retrieved out of the abdominal cavity. Specimen was sent to Pathology. Gallbladder fossa was irrigated with normal saline. All fluid return was clear. The instruments were then withdrawn under direct vision. The linea alba in midline was approximated with interrupted [id number] 2-0 Vicryl sutures. Skin was approximated with buried interrupted 4-0 Monocryl sutures. Sponge count and instrument count were correct. Dermabond was applied to close the skin edges. Marcaine 0.5% was injected into the wound. Estimated blood loss was less than 5 mL. Patient was extubated and sent to the recovery room in satisfactory and stable condition. Donaldo [id number]
[2017-02-02] MEDS: CEPHALEXIN MONOHYDRATE 500 MG CAPSULE (UD) PO SCH ×2 (09:22→21:34)
[2017-02-02] MEDS: RANITIDINE HCL 150 MG TABLET (FP) PO SCH ×2 (09:23→21:37)
--- NOTE | 2017-02-02 09:53 | PN ---
Progress Note, Physician - Current Medication List Current Medications: Active Medications Acetaminophen (Tylenol -) 325 mg PO Q6H PRN PRN Reason: PAIN 1-5 Cephalexin HCl (Keflex -) 500 mg PO BID [facility] Last Admin: 02/02/17 09:22 Dose: 500 mg Morphine Sulfate (Morphine Injection -) 2 mg IVPUSH Q3H PRN PRN Reason: PAIN Last Admin: 02/02/17 08:35 Dose: 2 mg Ondansetron HCl (Zofran Injection) 4 mg IVPUSH Q6H PRN PRN Reason: NAUSEA AND/OR VOMITING Oxycodone HCl (Roxicodone -) 5 mg PO Q6H PRN PRN Reason: PAIN 1-5 Last Admin: 02/02/17 04:38 Dose: 5 mg Ranitidine HCl (Zantac -) 150 mg PO BID [facility] Last Admin: 02/02/17 09:23 Dose: 150 mg - Objective Vital Signs: Vital Signs Temperature 98.1 F 02/02/17 07:07 Pulse Rate 60 02/02/17 07:07 Respiratory Rate 20 02/02/17 07:07 Blood Pressure 126/46 02/02/17 07:07 O2 Sat by Pulse Oximetry (%) 95 02/01/17 21:00 Labs: CBC, BMP 02/01/17 06:25 02/01/17 06:25 INR, PTT INR 1.12 (0.82-1.09) 02/01/17 06:25 Problem List - Problems (1) Calculus of gallbladder Code(s): K80.20 - CALCULUS OF GALLBLADDER W/O CHOLECYSTITIS W/O OBSTRUCTION Qualifiers: Cholecystitis presence: without cholecystitis Biliary obstruction: without biliary obstruction Qualified Code(s): K80.20 - Calculus of gallbladder without cholecystitis without obstruction (2) Gallbladder polyp Code(s): K82.4 - CHOLESTEROLOSIS OF GALLBLADDER (3) Nephrolithiasis Code(s): N20.0 - CALCULUS OF KIDNEY (4) Ureteral calculus Code(s): N20.1 - CALCULUS OF URETER (5) Hydronephrosis determined by ultrasound Code(s): N13.30 - UNSPECIFIED HYDRONEPHROSIS Assessment/Plan Postop day # 1. Patient si alert and oriented. She is having her breakfast. C/O back pain. Abdomen is soft , not tender. Lab work is normal. She is informed of operative findings, cholelithiasis with cystic duct obstruction , and hydrops of the gall bladder. She can be discharged home. I will follow her in the office. Pathology for gallbladder polyp is pending.
[2017-02-02] MEDS: SODIUM CHLORIDE 1,000 ML IV SCH (14:19)
--- NOTE | 2017-02-02 15:18 | PN ---
Teaching Attending Note Name of Resident: Corey Sánchez ATTENDING PHYSICIAN STATEMENT I saw and evaluated the patient. I reviewed the resident's note and discussed the case with the resident. I agree with the resident's findings and plan as documented. SUBJECTIVE:continuing to have R flank pain. states no improvement since admission. tolerating diet. denies Cp, SOB,fever, chills, N/V/C/D OBJECTIVE: Last Vital Signs Temp Pulse Resp BP Pulse Ox 98.1 F 78 18 156/73 94 L 02/02/17 14:54 02/02/17 14:54 02/02/17 14:54 02/02/17 14:54 02/02/17 09:00 General NAD CV S1 S2 RRR no murmur/rub/gallop Lungs CTA B/L no wheezing/rales/rhonchi Abdomen soft NT/ND surgical incisions with dried blood surrounding site. no CVA tenderness ASSESSMENT AND PLAN: 81yo M with no PMH presented to the ER and was admitted for further evaluation of their emergent condition 1. Nephrolithasis with R sided hydronephrosis- hydro not appreciated on u/s. continues to have persistent flank pain. unaware if urine has been strained, no report of stone passage. can likely be due to persistent stone vs post-op. will obtain KUB to evaluate if stone has passed. re-start IVF. will request urology evaluation pending results of AXR. 2. Acute cholecystitis with impacted cystic duct obstruction- s/p laparoscopic cholecystectomy and lysis of adhesions 02/01. no complications from surgery. tolerated well. pain control 3. MILA- unknown Cr baseline. has not seen PMD for many years. improved. 4. DVT ppx- EAM.
--- NOTE | 2017-02-02 17:01 | PN ---
Physical Exam: SUBJECTIVE: Patient seen and examined Pt is awake, alert and oriented Pt is complaining of abdominal pain and low right back pain no fever, no chills no n/v OBJECTIVE: Vital Signs Period Temp Pulse Resp BP Sys/Deleon Pulse Ox Last 24 Hr 97.8 F-98.7 F 60-90 16-22 126-160/46-78 94-95 GENERAL: The patient is awake, alert, and fully oriented, in no acute distress. HEAD: Normal with no signs of trauma. LUNGS: Breath sounds equal, clear to auscultation bilaterally, no wheezes, no crackles, no accessory muscle use. HEART: Regular rate and rhythm, S1, S2 ABDOMEN: Soft, right lower quadrant tenderness, right lower back/CVA tenderness. Abdomen non-distended, normoactive bowel sounds, no guarding, no rebound, no hepatosplenomegaly, no masses. Laparoscopic surgical sites closed, intact EXTREMITIES: 2+ pulses, warm, well-perfused, no edema. NEUROLOGICAL:. Normal speech, gait not observed. PSYCH: Normal mood, normal affect. SKIN: Warm, dry, normal turgor, no rashes or lesions noted Active Medications Generic Name Dose Route Start Last Admin Trade Name Freq PRN Reason Stop Dose Admin Acetaminophen 325 mg 02/01/17 14:41 Tylenol - PO Q6H PRN PAIN 1-5 Cephalexin HCl 500 mg 02/01/17 22:00 02/02/17 09:22 Keflex - PO 500 mg BID CLARK Administration Sodium Chloride 1,000 mls @ 75 mls/hr 02/02/17 13:00 02/02/17 14:19 Normal Saline - IV 75 mls/hr ASDIR CLARK Administration Ondansetron HCl 4 mg 02/01/17 15:15 Zofran Injection IVPUSH Q6H PRN NAUSEA AND/OR VOMITING Oxycodone HCl 5 mg 02/01/17 14:41 02/02/17 04:38 Roxicodone - PO 5 mg Q6H PRN Administration PAIN 1-5 Ranitidine HCl 150 mg 02/01/17 22:00 02/02/17 09:23 Zantac - PO 150 mg BID CLARK Administration CBC, BMP 02/01/17 06:25 02/01/17 06:25 ASSESSMENT/PLAN: 81 year old female presented to the ED with complaint of right low back pain that radiate anteriorly accompanied by n/v. Pt was found to have ureteral stone and Gallstone. S/P Lap cholecystectomy day 1 post Op Morphine prn Oxycodone 5mg PO Prn Zofran PRN IV Ureteral Stone CT abdomen/pelvis showed 4*3mn stone with hydronephrosis NS at 75ml/h Zofran 4mg IV q6h Morphine 2mg IV prn urology Dr Whitman consulted Xray abdomen to if stone is progressing or if patient has passed the stone MILA Cr 1.6, BUN 29 on Admission urine lytes, urine creatine, FENA 0.48%, less than 1 MILA is due to prerenal IV fluid NS At 75ml/h Cr 1.4, BUN 19 Continue IV fluid UTI On keflex day 5 Continue antibiotic for 7 days GERD Start pt on Ranitidine PO BID 150mg FEN Fluid NS at 75ml/h Electrolytes: no abnormalities Nutrition: low fat diet DVT prophylaxis: SCD, early ambulation Disposition: Keep in [facility]. Visit type - Emergency Visit Emergency Visit: Yes ED Registration Date: 01/29/17 Care time: The patient presented to the Emergency Department on the above date and was hospitalized for further evaluation of their emergent condition. - New Patient This patient is new to me today: Yes - Critical Care Critical Care patient: No - Discharge Referral Referred to [facility] No
[2017-02-03] MEDS: SODIUM CHLORIDE 1,000 ML IV SCH ×2 (01:45→14:09)
[2017-02-03] MEDS: oxyCODONE HCL 5 MG TABLET PO PRN (08:23)
[2017-02-03 08:42] LABS: MCH 32.1 pg (25.7-33.7); MCHC 34.5 g/dl (32.0-36.0); MEAN CELL VOLUME 93.2 fl (80-96); MEAN PLT VOLUME 8.7 fl (7.5-11.1); PLATELET COUNT 175 K/MM3 (134-434); RDW 12.7 % (11.6-15.6); WHITE BLOOD COUNT 9.9 K/mm3 (4.0-10.0)
[2017-02-03 09:01] LABS: CALCIUM 8.8 mg/dL (8.5-10.1); COCKROFT - GAULT 38.2245; CREATININE 1.3 mg/dL (0.55-1.02)
--- NOTE | 2017-02-03 09:17 | PN ---
Progress Note (short form) - Note Progress Note: c/o R flank pain radiating to the groin, moderate improvement since yesterday. denies Cp, SOB,fever, chills, N/V/C/D Current Medications Generic Name Dose Route Start Last Admin Trade Name Freq PRN Reason Stop Dose Admin Acetaminophen 325 mg 02/01/17 14:41 02/03/17 08:22 Tylenol - PO 325 mg Q6H PRN Administration PAIN 1-5 Cephalexin HCl 500 mg 02/01/17 22:00 02/02/17 21:34 Keflex - PO 500 mg BID CLARK Administration Sodium Chloride 1,000 mls @ 75 mls/hr 02/02/17 13:00 02/03/17 01:45 Normal Saline - IV 75 mls/hr ASDIR CLARK Administration Ondansetron HCl 4 mg 02/01/17 15:15 Zofran Injection IVPUSH Q6H PRN NAUSEA AND/OR VOMITING Oxycodone HCl 5 mg 02/01/17 14:41 02/03/17 08:23 Roxicodone - PO 5 mg Q6H PRN Administration PAIN 1-5 Ranitidine HCl 150 mg 02/01/17 22:00 02/02/17 21:37 Zantac - PO 150 mg BID CLARK Administration Last Vital Signs Temp Pulse Resp BP Pulse Ox 98.2 F 72 20 172/76 94 L 02/03/17 08:36 02/03/17 08:36 02/03/17 08:36 02/03/17 08:36 02/02/17 21:00 General NAD CV S1 S2 RRR no murmur/rub/gallop Lungs CTA B/L no wheezing/rales/rhonchi Abdomen soft NT/ND surgical incisions with good approximation, healing well. no CVA tenderness CBCD WBC 9.9 K/mm3 (4.0-10.0) 02/03/17 08:22 RBC 3.71 M/mm3 (3.60-5.2) 02/03/17 08:22 Hgb 11.9 GM/dL (10.7-15.3) D 02/03/17 08:22 Hct 34.6 % (32.4-45.2) 02/03/17 08:22 MCV 93.2 fl (80-96) 02/03/17 08:22 MCHC 34.5 g/dl (32.0-36.0) 02/03/17 08:22 RDW 12.7 % (11.6-15.6) 02/03/17 08:22 Plt Count 175 K/MM3 (134-434) 02/03/17 08:22 MPV 8.7 fl (7.5-11.1) 02/03/17 08:22 CMP Sodium 140 mmol/L (136-145) 02/03/17 08:22 Potassium 4.0 mmol/L (3.5-5.1) 02/03/17 08:22 Chloride 107 mmol/L (98-107) 02/03/17 08:22 Carbon Dioxide 23 mmol/L (21-32) 02/03/17 08:22 Anion Gap 10 (8-16) 02/03/17 08:22 BUN 22 mg/dL (7-18) H 02/03/17 08:22 Creatinine 1.3 mg/dL (0.55-1.02) H 02/03/17 08:22 Creat Clearance w eGFR 30.86 (>60) 01/28/17 18:30 Calcium 8.8 mg/dL (8.5-10.1) 02/03/17 08:22 Total Bilirubin 0.8 mg/dL (0.2-1.0) 02/01/17 06:25 AST 27 U/L (15-37) 02/01/17 06:25 ALT 31 U/L (12-78) 02/01/17 06:25 Alkaline Phosphatase 63 U/L (45-117) D 02/01/17 06:25 Total Protein 5.6 g/dl (6.4-8.2) L D 02/01/17 06:25 Albumin 3.0 g/dl (3.4-5.0) L D 02/01/17 06:25 ASSESSMENT AND PLAN: 81yo M with no PMH presented to the ER and was admitted for further evaluation of their emergent condition 1. Nephrolithasis with R sided hydronephrosis- KUB done showing the stone has progressed to L4 at this time. continues to have pain (however has not requested pain medications since yesterday morning). spoke with urology who will re-evaluate and possible perform lithotripsy tomorrow vs monitoring as outpatient and follow up as outpatient. maintain IVF and pain control at this time. keflex day 6 2. Acute cholecystitis with impacted cystic duct obstruction- s/p laparoscopic cholecystectomy and lysis of adhesions 02/01. no complications from surgery. tolerated well. pain control 3. MILA- unknown Cr baseline. has not seen PMD for many years. improved. 4. DVT ppx- EAM. 5. d/c planning pending intervention by urology Visit type - Emergency Visit Emergency Visit: Yes ED Registration Date: 01/29/17 Care time: The patient presented to the Emergency Department on the above date and was hospitalized for further evaluation of their emergent condition. - New Patient This patient is new to me today: No - Critical Care Critical Care patient: No - Discharge Referral Referred to [facility] No
[2017-02-03] MEDS: CEPHALEXIN MONOHYDRATE 500 MG CAPSULE (UD) PO SCH ×2 (10:31→21:28)
[2017-02-03] MEDS: RANITIDINE HCL 150 MG TABLET (FP) PO SCH ×2 (10:31→21:31)
--- NOTE | 2017-02-03 14:02 | PATH ---
Surgical Pathology Report Patient Name: JOSE ALMANZAR Med. Rec. #: [id number] /Age/Gender: 1935 (Age: 81) / F Account: [id number] Location: [facility] MED/SURG Taken: 02/01/2017 Received: 02/02/2017 Reported: 02/03/2017 Physicians: Terence Wasserman M.D. 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 NO DYSPLASIA IDENTIFIED. Electronically Signed Ferdinand Steele M.D. Gross Description Received in formalin, labeled "gallbladder" is a 7.0 x 2.5 x 2.4 cm gallbladder with a 0.2 cm in length portion of cystic duct attached. The outer surface is lock with a focal defect and varies from smooth to shaggy. The lumen contains a 2.1 cm in greatest dimension lock, ovoid cholelith. There is no bile present within the lumen. The mucosa is eroded. There are no definitive polyps identified. The wall of the gallbladder is thinned, firm and measures <0.1 cm in thickness. Health Insurance Assessor sections are submitted in 2 cassettes. /02/02/201702/02/2017
[2017-02-03 21:56] VITALS: TEMP 98.2
[2017-02-04 08:54] LABS: CALCIUM 8.6 mg/dL (8.5-10.1); COCKROFT - GAULT 45.169; CREATININE 1.1 mg/dL (0.55-1.02)
[2017-02-04] MEDS ORDERED: amLODIPine BESYLATE 2.5 MG TABLET (FP) PO SCH (10:00)
[2017-02-04] MEDS ORDERED: TAMSULOSIN HCL 0.4 MG CAP.ER.24H (FP) PO SCH (10:00)
[2017-02-04] MEDS: RANITIDINE HCL 150 MG TABLET (FP) PO SCH (11:10)
--- NOTE | 2017-02-04 13:15 | DS ---
Physical Exam: SUBJECTIVE: Patient seen and examined Pt is feeling well no s/s of acute distress no fever, chills no n/v OBJECTIVE: Vital Signs Period Temp Pulse Resp BP Sys/Deleon Pulse Ox Last 24 Hr 97.4 F-98.2 F 72-85 18-20 135-164/59-88 92-92 PHYSICAL EXAM GENERAL: The patient is awake, alert, and fully oriented, in no acute distress. HEAD: Normal with no signs of trauma. LUNGS: Breath sounds equal, clear to auscultation bilaterally, no wheezes, no crackles, no accessory muscle use. HEART: Regular rate and rhythm, S1, S2 ABDOMEN: Soft, minimal tenderness. Abdomen non-distended, normoactive bowel sounds, no guarding, no rebound, no hepatosplenomegaly, no masses. Laparoscopic surgical sites closed, intact EXTREMITIES: 2+ pulses, warm, well-perfused, no edema. NEUROLOGICAL:. Normal speech, gait not observed. PSYCH: Normal mood, normal affect. SKIN: Warm, dry, normal turgor, no rashes or lesions noted LABS Laboratory Results - last 24 hr 02/04/17 07:00 Sodium 141 Potassium 3.8 Chloride 109 H Carbon Dioxide 23 Anion Gap 9 BUN 18 Creatinine 1.1 H Random Glucose 84 Calcium 8.6 HOSPITAL COURSE: Date of Admission:01/29/17 81 year old female presented to the ED with complaint of right low back pain that radiate anteriorly accompanied by n/v. Pt was found to have ureteral stone and Gallstone. Patien had a Lap cholecystectomy on 01/01/[address] abdomen/pelvis showed 4*3mn stone with hydronephrosis. Patient was treated with IV fluid, Zofran, Morphine 2mg IV prn. Urology Dr Whitman consulted, we continue medical management in the hospital with outpatient and scheduled as outpatient. Pt had a UTI and was treated with Keflex PO for 7 days. Pt had MILA with Cr 1.6, BUN 29 on Admission, urine lytes, urine creatine, FENA 0.48%, less than 1 so MILA is due to prerenal and improved with IV fluid. Pt has GERD, she was started on Ranitidine PO BID 150mg. Patient is to follow up with Dr Wasserman and Dr Whitman. Date of Discharge: 02/04/17 Minutes to complete discharge: 35 Discharge Summary Reason For Visit: CALCULUS OF RIGHT KIDNEY Current Active Problems MILA (acute kidney injury) (Acute) Acute renal insufficiency (Acute) Calculus of gallbladder (Acute) Gallbladder polyp (Acute) Hydronephrosis (Acute) Hydronephrosis determined by ultrasound (Acute) Kidney stone on right side (Acute) Nausea & vomiting (Acute) Nephrolithiasis (Acute) Ureteral calculus (Acute) Condition: Stable - Instructions Diet, Activity, Other Instructions: Rest, drink lots of fluids: Teas, water, soups Avoid contact with others until fevers and symptoms resolved Lots of handwashing and good hygiene Continue [id number] medications for symptomatic relief Tylenol or Motrin for fever and pain Followup with private physician in one week for repeat urinalysis/reevaluation Return to emergency department for worsened symptoms, fevers, dehydration Call Dr. Wasserman's office for appointment , [phone], at [address] [place] [address]. You may be seen on Wednesday, February 08, at 4.15 p.m. Discharge Home Resume Home diet Resume medication Start On Flomax 1 table t orally daily Start Norvasc 1 tablet orally daily Follow up with urologist Dr Whitman 1-2 week Follow up with Surgeon Dr Wasserman within 1 week Strain Urine Drink plenty of water at least 8 glasses per day You are scheduled for Lithotripsy on February 09, 2017 at 11am at [facility] NPO after midnight the night before surgery Referrals: Marcus Durand MD., [Staff Physician] - Ashli Wasserman MD [Staff Physician] - Disposition: HOME - Home Medications Comprehensive Discharge Medication List: Ambulatory Orders No Home Medications 0 dose .ROUTE UTDICT 10/14/13 Cephalexin Monohydrate [Keflex -] 500 mg PO Q8H #21 capsule 01/28/17 Cephalexin Monohydrate [Keflex -] 500 mg PO Q8H #21 capsule 01/28/17 This patient is new to me today: Yes Emergency Visit: Yes ED Registration Date: 01/29/17 Care time: The patient presented to the Emergency Department on the above date and was hospitalized for further evaluation of their emergent condition. Critical Care patient: No - Discharge Referral Referred to [facility] No
--- NOTE | 2017-02-04 13:37 | PN ---
Teaching Attending Note Name of Resident: Corey Sánchez ATTENDING PHYSICIAN STATEMENT I saw and evaluated the patient. I reviewed the resident's note and discussed the case with the resident. I agree with the resident's findings and plan as documented. SUBJECTIVE:states pain has resolved. tolerating diet. no hematuria, Denies CP, SOB,fever, chills, N/V/C/D OBJECTIVE: Last Vital Signs Temp Pulse Resp BP Pulse Ox 98.2 F 82 20 164/88 92 L 02/04/17 07:25 02/04/17 07:25 02/04/17 09:00 02/04/17 07:25 02/04/17 09:00 General NAD Abdomen soft NT/ND ASSESSMENT AND PLAN: 81yo M with no PMH presented to the ER and was admitted for further evaluation of their emergent condition 1. Nephrolithasis with R sided hydronephrosis-symptoms have improved. stone likley slowly moving. pt to follow up with urology. may require intervention if it does not pass. will start flomax to aid in transport. completed 7 day course of abx for possible UTI. 2. Acute cholecystitis with impacted cystic duct obstruction- s/p laparoscopic cholecystectomy and lysis of adhesions 02/01. no complications from surgery. tolerated well. pain control 3. MILA- unknown Cr baseline. has not seen PMD for many years. improved. 4. DVT ppx- EAM. 5. d/c home with urology follow up
[2017-02-04 14:43] VITALS: BP 120/84; PULSE 70
== END 2017-02-04 19:15 | disposition home or self-care (01) | DRG 418 ==
LOC: JERFT 13:45 → OBSVTOIN 21:02 → INTOOBSV 21:02 → UNDOADMOB 21:02 → JERBED 21:02 → J8W 01-29 00:32 → JERBED 01-29 00:32 → J8W 01-29 16:30 → JERBED 01-29 16:30 → OBSVTOIN 01-29 16:30
PROVIDERS: ADMIT Internal Medicine; ATTEND Internal Medicine
PROC: 0DNT4ZZ (ICD-10-PCS; 2017-02-01)
PROC: 0FT44ZZ Resection of Gallbladder, Percutaneous Endoscopic Approach (ICD-10-PCS; principal; 2017-02-01 12:30)
DX: K80.12 Calculus of gallbladder with acute and chronic cholecystitis without obstruction (principal); N13.2 Hydronephrosis with renal and ureteral calculous obstruction; N17.9 Acute kidney failure, unspecified; N39.0 Urinary tract infection, site not specified; K82.4 Cholesterolosis of gallbladder; N73.6 Female pelvic peritoneal adhesions (postinfective); K21.9 Gastro-esophageal reflux disease without esophagitis
CPT/HCPCS: 36415; 71020-TC; 74000-TC; 74176; 76705-TC; 80048; 80053; 80076; 81003; 81015; 82436; 82570; 83935; 84133; 84300; 85025; 85027; 85610; 85730; 87086; 88304-TC; 93005; 93010; 94760; 97116-GP; 97161-GP; 99281-25; G0008; Q2037

== ENCOUNTER 2017-02-09 09:18 | Day surgery (SDC) | payer OTHER ==
[2017-02-08 12:57] VITALS: BMI 29.2
--- NOTE | 2017-02-09 11:36 | OP ---
Operative Note - Note: Operative Date: 02/09/17 Pre-Operative Diagnosis: right renal calculus Operation: Right ESWL Post-Operative Diagnosis: Same as Pre-op Surgeon: Marcus Durand MD. Anesthesia: General
[2017-02-09] MEDS ORDERED: KETOROLAC TROMETHAMINE 30 MG/1 ML VIAL ONE (11:56)
[2017-02-09] MEDS ORDERED: MIDAZOLAM HCL 2 MG/2 ML SINGLE DOSE VIAL ONE (11:56)
[2017-02-09] MEDS ORDERED: DEXAMETHASONE SOD PHOSPHATE 4 MG/1 ML VIAL ONE (11:56)
[2017-02-09] MEDS ORDERED: PROPOFOL 20 ML ONE (11:56)
[2017-02-09] MEDS ORDERED: ceFAZolin SODIUM 1 GM VIAL IVPB ONE (12:00)
[2017-02-09] MEDS ORDERED: PROMETHAZINE HCL 25 MG/1 ML VIAL IVPUSH PRN (12:31)
[2017-02-09] MEDS ORDERED: oxyCODONE HCL 5 MG TABLET PO PRN (12:31)
[2017-02-09] MEDS ORDERED: ONDANSETRON 4 MG/2 ML VIAL IVPUSH PRN (12:31)
[2017-02-09 13:02] VITALS: TEMP 98.2
[2017-02-09 14:58] VITALS: BP 141/78; PULSE 72
--- NOTE | 2017-02-09 17:57 | OP ---
DATE OF OPERATION: 02/09/2017 PREOPERATIVE DIAGNOSIS: Right renal calculus. POSTOPERATIVE DIAGNOSIS: Right renal calculus. PROCEDURE: Right extracorporeal shock-wave lithotripsy. HISTORY: This is an 81-year-old female with history of renal calculi, on preoperative imaging found to have an approximately 8-mm calculus in the renal pelvis. After discussing treatment options including observation, elects to undergo the above-stated procedure. Risks and benefits of treatment and alternative treatments discussed in detail. All questions were answered. BRIEF OPERATIVE NOTE: The patient was brought to the operative room, placed in the supine position. Using fluoroscopy and ultrasonography, the stone was visualized. The lithotripter was then used to deliver approximately 2500 shocks in electromagnetic fashion to fragment the stone, which appeared to be in small fragments radiographically. The patient tolerated procedure well and was brought to recovery room in stable and satisfactory condition. SANDHYA STRONG M.D. [facility]IS/[id number]
== END 2017-02-09 14:30 | disposition home or self-care (01) ==
LOC: JASU-SURG 09:18
PROVIDERS: ATTEND Urology
PROC: 0TF3XZZ Fragmentation in Right Kidney Pelvis, External Approach (ICD-10-PCS; principal; 2017-02-09 11:00)
DX: N20.0 Calculus of kidney (principal)
CPT/HCPCS: 94760

== ENCOUNTER 2019-07-25 14:50 | Inpatient (IN) | payer OTHER ==
--- NOTE | 2019-07-25 16:38 | PDOC ---
History of Present Illness - General Chief Complaint: Weakness Stated Complaint: HEADACE Time Seen by Provider: 07/25/19 15:21 History Source: Patient Exam Limitations: No Limitations - History of Present Illness Initial Comments: 07/25/19 16:33 Katrina Christensen is an 83F with poor hearing presenting with PMH HTN, cholecystectomy, and renal calculus presenting with headache and R arm numbness. Patient is a poor historian, reports that she has an ache inside her entire head for the last day, and says that her right arm feels numb like it is falling asleep and getting worse over time. Says her legs feel weak as well. Otherwise denies chest pain, SOB, palpitations, dizziness, abd pain. Per son: - has been trying to contact his mother for the last 3 days but has been unable to - patient normally high functioning, able to ambulate, go to restroom, and eat by herself - in bed last 2 days - unsure how she was eating/drinking/taking meds - told him she had a SRINIVASAN, R arm numb - tried to go to urgent care, pt too weak to go down stairs - EMS called - no hx cardiac disease/stroke - no hx dementia that is known - no PMD, has seen specialists for vannesa and renal stones - unsure what med she takes for HTN - no PMD since her last 8 years ago Past History - Past Medical History Allergies/Adverse Reactions: Allergies Allergy/AdvReac Type Severity Reaction Status Date / Time No Known Allergies Allergy Verified 01/28/17 13:52 Home Medications: Ambulatory Orders Amlodipine Besylate [Norvasc -] 2.5 mg PO DAILY #30 tablet 02/04/17 Ranitidine [Zantac -] 150 mg PO BID #60 tablet 02/04/17 Tamsulosin HCl [Flomax -] 0.4 mg PO DAILY@0830 #30 tab 02/04/17 Docusate Sodium [Colace -] 100 mg PO TID PRN 02/09/17 Anemia: No Asthma: No Cancer: Yes (skin cancer nose neck) Cardiac Disorders: No CVA: No COPD: No CHF: No Dementia: No Diabetes: No GI Disorders: No Disorders: No HTN: Yes Hypercholesterolemia: No Liver Disease: No Seizures: No Thyroid Disease: No - Surgical History Cholecystectomy: Yes (01/2017) - Immunization History Immunization Up to Date: Yes - Psycho Social/Smoking Cessation Hx Smoking History: Never smoked Have you smoked in the past 12 months: No Information on smoking cessation initiated: No Hx Alcohol Use: No Drug/Substance Use Hx: No Substance Use Type: None Review of Systems - Review of Systems Able to Perform ROS?: Yes Constitutional: Yes: Malaise, Weakness. No: Chills, Fever, Loss of Appetite HEENTM: Yes: Hearing Loss (baseline hearing deficit). No: Blurred Vision, Recent change in vision Respiratory: No: Cough, Shortness of Breath, Wheezing Cardiac (ROS): Yes: Lightheadedness. No: Chest Pain, Irregular Heart Rate, Palpitations, Syncope, Chest Tightness ABD/GI: Yes: Diarrhea, Poor Appetite, Poor Fluid Intake. No: Constipated, Nausea, Vomiting : No: Symptoms Reported Musculoskeletal: No: Symptoms Reported Integumentary: No: Symptoms Reported Neurological: Yes: Headache, Numbness (r arm), Unsteady Gait, Dizziness. No: Tremors, Weakness Endocrine: No: Symptoms Reported Hematologic/Lymphatic: No: Symptoms Reported All Other Systems: Reviewed and Negative *Physical Exam - Vital Signs Last Vital Signs Temp Pulse Resp BP Pulse Ox 97.4 F L 81 26 H 103/89 99 07/25/19 15:33 07/25/19 15:33 07/25/19 14:55 07/25/19 15:33 07/25/19 15:59 - Physical Exam General Appearance: Yes: Nourished, Appropriately Dressed, Obese, Other ( sitting cross-legged on bed, in no acute distress). No: Apparent Distress HEENT: positive: EOMI, MELODY, Normal Voice, Symmetrical, Pharynx Normal (no erythema, enlarged tonsils, oropharynx dry), Hearing Decreased. negative: Scleral Icterus (R), Scleral Icterus (L), Pharyngeal Erythema, Tonsillar Exudate , Lesions, [place]: positive: Normal Thyroid, Supple. negative: Tender, Rigid, Lymphadenopathy (R), Lymphadenopathy (L) Respiratory/Chest: positive: Lungs Clear, Normal Breath Sounds. negative: Chest Tender, Respiratory Distress, Accessory Muscle Use, Crackles, Rales, Rhonchi Cardiovascular: positive: Regular Rhythm, Regular Rate. negative: Murmur Gastrointestinal/Abdominal: positive: Normal Bowel Sounds, Flat, Soft. negative : Tender, Organomegaly, Guarding, Rebound Musculoskeletal: positive: Normal Inspection. negative: CVA Tenderness Extremity: positive: Normal Capillary Refill (BUE: cap refill <3 sec, flexor/ extensor strength 5/5), Normal Inspection, Normal Range of Motion, Other (RUE sensation intact to LT to hands but decreased compared to RUE, all joints full ROM, non-tender, color normal, warm skin, radial pulse intact, 5/5 strength, moving spontaneously). negative: Tender, Coldness, Cyanosis, Delayed Capillary Refill, Pedal Edema Integumentary: positive: Normal Color, Dry, Warm. negative: Cold, Clammy, Rash , Swelling Neurologic: positive: privacy compliance manager II-XII NML intact, Fully Oriented, Alert, Normal Mood/ Affect, Normal Response, Motor Strength 5/5, Responsive, Numbness (no decreased) , Other (NIHSS 0, no facial droop, no aphasia, speaking normally and with normal syntax and ideation, no R sided inattention, moving all extremities moving spontaneously and without weakness). negative: EOM Palsy, Facial Droop, Confused ED Treatment Course - LABORATORY CBC & Chemistry Diagram: 07/25/19 17:00 07/25/19 17:00 Medical Decision Making - Medical Decision Making 07/25/19 16:33 Katrina Christensen is an 83F with poor hearing presenting with PMH HTN, cholecystectomy, and renal calculus presenting with headache and R arm numbness. - presentation concerning for stroke, last known normal unknown but > 3 days ago - NIHSS 0, has no drift, is fully oriented - arms not weak, fully neuro/vascular intact, full ROM, 5/5 strength, cap refill <3 sec - arm weakness and SRINIVASAN still concerning for intracranial process vs. aortic dissection vs. cervical radiculopathy - concerned about prolonged stay in bed and weakness, cardiac vs. metabolic etiology - history not consistent between providers, concerned for AMS 2/2 metabolic process vs. dementia vs. poor health literacy vs. anxiety Will evaluate with: ECG CMP CBC CP for CK and trop UA/UC Mag Phos Coags Getting CT head for AMS and R arm numbness CXR to evaluate heart and eval for dissection as cause of arm numbness Gave 1L NS for presumed dehydration 07/25/19 19:10 CK elevated to 423 consistent with prolonged supine position Cr not elevated above baseline No lyte abnormalities needing correcting CXR appears grossly normal on prelim read, no acute changes from prior Patient brought to CT for CT head Signed out to Dr. 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 Consult placed with Dr. Aguilar with neurology. Cannot find ECG, needs repeat ECG. Discharge - Discharge Information Problems reviewed: Yes Clinical Impression/Diagnosis: Weakness, Right upper extremity numbness - Follow up/Referral - Patient Discharge Instructions - Post Discharge Activity
[2019-07-25] MEDS ORDERED: SODIUM CHLORIDE 0.9% 500 ML INFUS.BAG IV ONE (16:42)
--- NOTE | 2019-07-25 17:04 | PDOC ---
Documentation entered by Reymundo Lynch SCRIBE, acting as scribe for Saira Mi MD. Saira Mi MD: This documentation has been prepared by the Syed esparza Daniel, SCRIBE, under my direction and personally reviewed by me in its entirety. I confirm that the documentation accurately reflects all work, treatment, procedures, and medical decision making performed by me. Attending Attestation - Resident Resident Name: Abbe Schneider - ED Attending Attestation I have performed the following: I have examined & evaluated the patient, The case was reviewed & discussed with the resident, I agree w/resident's findings & plan, Exceptions are as noted - HPI HPI: 07/25/19 17:01 This 83-year-old female was brought in after being found in bed by her son who had not been able to contact her for several days. At baseline she is able to attend to her activities of daily living and lives alone. When the son reached her she complained of a headache and right arm numbness but on exam there appears to be no actual focal neuro deficit. - Physicial Exam PE: 07/25/19 18:37 Conversant 83-year-old female seated on the gurney in no acute respiratory distress Has normocephalic atraumatic, no scalp lacerations or hematomas appreciated Neck no midline cervical vertebral tenderness Lungs are clear to auscultation bilaterally CVS regular rate and rhythm S1-S2 Abdomen protuberant, nontender non-no guarding Skin warm and dry Neuro alert and conversant moving all her extremities - Medical Decision Making 07/25/19 17:02 83-year-old female who is typically alert ambulatory and cancer herself was found bedbound by her son. Patient states that she has been in bed for several days and not eating or drinking. She is complaining of some right arm numbness or pain and headache. Past medical history hypertension, kidney stones Past surgical history cholecystectomy Evaluation will look for cardiac and neurological causes and also infectious causes for her change in baseline. She currently is not febrile and is normotensive 07/25/19 17:04 Plan UA UC, cardiac enzymes, EKG, CBC, chemistry, CT of the head 07/25/19 18:38 labs unremarkable except for elevated cpk 07/25/19 19:41 ct scan of head: small L occiptal cortical infarct is noted and not seen on the 2007 CT scan UA only 4 wbc ADMIT to sroke unit, no TPA since pt is out of the window by several days
[2019-07-25 17:37] LABS: BASO % 1.1 % (0-2.0); EOS % 0.9 % (0-4.5); HEMATOCRIT 41.8 % (32.4-45.2); LYMPH % 17.6 % (8-40); MCH 31.6 pg (25.7-33.7); MCHC 33.6 g/dl (32.0-36.0); MEAN CELL VOLUME 94.1 fl (80-96); MEAN PLT VOLUME 8.9 fl (7.5-11.1); MONO % 10.2 % (3.8-10.2); NEUT % 70.2 % (42.8-82.8); PLATELET COUNT 259 K/MM3 (134-434); RBC 4.44 M/mm3 (3.60-5.2); WHITE BLOOD COUNT 8.7 K/mm3 (4.0-10.0)
[2019-07-25 18:00] LABS: ALK PHOS 99 U/L (45-117); ANION GAP 7 MMOL/L (8-16); BILIRUBIN,TOTAL 0.9 mg/dL (0.2-1); BLOOD UREA NITROGEN 25.8 mg/dL (7-18); CALCIUM 9.7 mg/dL (8.5-10.1); CHLORIDE 107 mmol/L (98-107); CO2 25 mmol/L (21-32); CREATININE 1.3 mg/dL (0.55-1.3); GLUCOSE,RANDOM 83 mg/dL (74-106); MAGNESIUM 2.3 mg/dL (1.8-2.4); PHOSPHOROUS 2.7 mg/dL (2.5-4.9); POTASSIUM 4.8 mmol/L (3.5-5.1); SGOT/AST 32 U/L (15-37); SGPT/ALT 22 U/L (13-61); SODIUM 139 mmol/L (136-145); TOT PROT 7.3 g/dl (6.4-8.2)
[2019-07-25 18:11] LABS: INR 1.1 (0.83-1.09)
[2019-07-25 18:14] LABS: ACTIVATED PTT 33.8 SECONDS (25.2-36.5)
--- NOTE | 2019-07-25 19:20 | PDOC ---
*Physical Exam - Vital Signs Last Vital Signs Temp Pulse Resp BP Pulse Ox 97.4 F L 81 26 H 103/89 99 07/25/19 15:33 07/25/19 15:33 07/25/19 14:55 07/25/19 15:33 07/25/19 17:27 ED Treatment Course - LABORATORY CBC & Chemistry Diagram: 07/25/19 17:00 07/25/19 17:00 - ADDITIONAL ORDERS Additional order review: Laboratory Results 07/25/19 07/25/19 07/25/19 17:00 17:00 17:00 PT with INR 13.00 INR 1.10 H PTT (Actin FS) 33.8 Sodium 139 Potassium 4.8 Chloride 107 Carbon Dioxide 25 Anion Gap 7 L BUN 25.8 H Creatinine 1.3 Est GFR (CKD-EPI)AfAm 43.63 Est GFR (CKD-EPI)NonAf 37.64 Random Glucose 83 Lactic Acid 1.5 Calcium 9.7 Phosphorus 2.7 Magnesium 2.3 Total Bilirubin 0.9 AST 32 ALT 22 Alkaline Phosphatase 99 Creatine Kinase 423 H Creatine Kinase Index 0.7 CK-MB (CK-2) 3.2 Troponin I < 0.02 Total Protein 7.3 Albumin 4.0 07/25/19 17:00 RBC 4.44 MCV 94.1 MCHC 33.6 RDW 13.0 MPV 8.9 Neutrophils % 70.2 Lymphocytes % 17.6 D Monocytes % 10.2 Eosinophils % 0.9 Basophils % 1.1 - Medications Given in the ED: ED Medications Discontinued Medications Generic Name Dose Route Start Last Admin Trade Name Freq PRN Reason Stop Dose Admin Sodium Chloride 1,000 ml 07/25/19 16:42 07/25/19 17:25 Normal Saline - IV 07/25/19 16:43 1,000 ml ONCE ONE Administration Medical Decision Making - Medical Decision Making 07/25/19 19:[address] ESPOSITO, will f/u CT head and UA results, dispo accordingly. 07/25/19 19:36 UA maybe mild UTI. 07/25/19 19:45 CT head concerning L occipital stroke of unknown age, periventricular ischemic changes worse than prior. Will get patient admitted. Called Dr. Gil's answering service, will await Dr. Nielsen's call back. Discharge - Discharge Information Problems reviewed: Yes Clinical Impression/Diagnosis: Weakness, Right upper extremity numbness, Stroke Condition: Guarded - Admission Yes - Follow up/Referral - Patient Discharge Instructions - Post Discharge Activity
[2019-07-25 19:30] LABS: EPI CELLS 6.6 /HPF (0-5/HPF); HYALINE CASTS 3 /lpf (0-8); URINE APPEARANCE CLEAR; URINE BACTERIA 53.3 /hpf (NEGATIVE); URINE BILIRUBIN NEGATIVE (NEGATIVE); URINE COLOR YELLOW; URINE GLUCOSE (UA) NEGATIVE (NEGATIVE); URINE KETONE 1+ (NEGATIVE); URINE LEUK ESTERASE 1+ (NEGATIVE); URINE NITRITE NEGATIVE (NEGATIVE); URINE PROTEIN NEGATIVE (NEGATIVE); URINE UROBILINOGEN 0.2 mg/dL (0.2-1.0); URINE WBC 4 /hpf (0-5)
[2019-07-25 20:38] LABS: URINE RBC 3.6 /hpf (0-4)
--- NOTE | 2019-07-25 21:55 | PN ---
Teaching Attending Note Name of Resident: Afua Bojorquez ATTENDING PHYSICIAN STATEMENT I saw and evaluated the patient. I reviewed the resident's note and discussed the case with the resident. I agree with the resident's findings and plan as documented. SUBJECTIVE: 83yo woman w/ HTN, cholecystectomy, and renal calculus presenting with headache and R arm numbness x 2 days. She also mentioned that her legs feel weak bilaterally. Found on floor by son, brought in for further evaluation. NIH stroke scale when patient presented was a 4. Difficult to obtain history from patient as she has profound deafness. OBJECTIVE: Last Vital Signs Temp Pulse Resp BP Pulse Ox 97.4 F L 77 18 136/69 98 07/25/19 15:33 07/25/19 19:44 07/25/19 19:44 07/25/19 19:44 07/25/19 19:44 gen- nontoxic heent- atraumatic cv-s1+s2+rrr chest cta b/l abomen- soft, nt ext- no pedal edema neuro- neg babinski b/l, no patellar or bicipital hyperreflexia, right upper ext motor 4/5, failed finger to nose test, deafness. 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 -telemetry -npo -bed rest -fall precautions -neuro checks q4hrs -brain mri/ mra -neck mra -carotid duplex -echo -neuro consult -speech and swallow consult -PT evaluation -high intensity statin -ASA 81mg po -tylenol IV prn for headache -permissive htn - hold anti-htn meds at this time #CKD -dvt ppx- heparin sc
[2019-07-25] MEDS ORDERED: SODIUM CHLORIDE 1,000 ML IV SCH ×3 (22:00→22:45)
[2019-07-25] MEDS ORDERED: ATORVASTATIN CA 80 MG TABLET (FP) PO SCH (22:00)
[2019-07-25] MEDS ORDERED: ACETAMINOPHEN 1000 MG/100 ML VIAL (NON FORMULARY) IVPB PRN (22:41)
--- NOTE | 2019-07-25 22:48 | HP ---
CHIEF COMPLAINT: R leg weakness PCP: none HISTORY OF PRESENT ILLNESS: 83 y.o. F PMH HTN, b/l hearing loss, shingles 1 yr ago presenting with her son for weakness and change in baseline mental status. The patient is very hard of hearing and interview was conducted with son present. Pt's son says he felt his mom was not sounding like her usual self on the phone for the past 2 days and had mild dysarthria. When he went to see her she had not gotten out of bed, eaten/drank, or tended to her ADL's in 2 days. She appeared weak so he called EMS to take her to the hospital. In ED pt c/o R leg weakness and R arm numbness. She also endorses a diffuse headache that she has had for the past day and loss of energy. The son states that he does not believe that the patient has taken any medications for a long time as she has not visited a primary care doctor in the past few years. ROS: + generalized headaches/ R arm parasthesias/ chest congestion/ SOB. Denies vision changes/ CP/ abdominal pain/ urinary changes/ N/V/D. ER course was notable for: (1) 1L NS (2) CT Head-- L occipital infarct acute vs chronic (3) Recent Travel: denies PAST MEDICAL HISTORY: as per HPI PAST SURGICAL HISTORY: lap vannesa, renal lithotripsy Social History: lives alone Smoking: denies Alcohol:denies Drugs: denies Allergies No Known Allergies Allergy (Verified 01/28/17 13:52) HOME MEDICATIONS: Home Medications Medication Instructions Recorded Amlodipine Besylate [Norvasc -] 2.5 mg PO DAILY #30 tablet 02/04/17 Ranitidine [Zantac -] 150 mg PO BID #60 tablet 02/04/17 Tamsulosin HCl [Flomax -] 0.4 mg PO DAILY@0830 #30 tab 02/04/17 Docusate Sodium [Colace -] 100 mg PO TID PRN 02/09/17 PHYSICAL EXAMINATION Vital Signs - 24 hr 07/25/19 07/25/19 07/25/19 14:55 15:33 15:59 Temperature 97.4 F L Pulse Rate 99 H Pulse Rate [ 81 Left] Respiratory 26 H Rate Blood Pressure 116/103 H Blood Pressure 103/89 [Left] O2 Sat by Pulse 99 96 99 Oximetry (%) 07/25/19 07/25/19 17:27 19:44 Temperature Pulse Rate Pulse Rate [ 77 Left] Respiratory 18 Rate Blood Pressure Blood Pressure 136/69 [Left] O2 Sat by Pulse 99 98 Oximetry (%) GENERAL: AOx2 oriented to self and place, not year. In no acute distress. Very hard of hearing, not wearing her hearing aids HEENT: NCAT. EOMI. PERRLA. MMM. LUNGS: Breath sounds equal, clear to auscultation bilaterally. No wheezes, and no crackles. No accessory muscle use. HEART: Regular rate and rhythm, normal S1 and S2 without murmurs ABDOMEN: Soft, nontender, not distended, normoactive bowel sounds, no guarding MSK: Moving all extremities. UPPER EXTREMITIES: + RUE parasthesias. 2+ pulses palpated b/l. LOWER EXTREMITIES: 2+ pulses, warm, well-perfused. No calf tenderness. No peripheral edema. NEUROLOGICAL: Cranial nerves II-XII intact. Normal speech. Good cot assembler strength. Diminished motor strength RLE. Sensory intact b/l UE & LE. PSYCHIATRIC: Cooperative. Good eye contact. Appropriate mood and affect. SKIN: No rashes or lesions noted Laboratory Results - last 24 hr 07/25/19 07/25/19 07/25/19 17:00 17:00 17:00 WBC 8.7 RBC 4.44 Hgb 14.0 Hct 41.8 D MCV 94.1 MCH 31.6 MCHC 33.6 RDW 13.0 Plt Count 259 D MPV 8.9 Absolute Neuts (auto) 6.1 Neutrophils % 70.2 Lymphocytes % 17.6 D Monocytes % 10.2 Eosinophils % 0.9 Basophils % 1.1 Nucleated RBC % 0 PT with INR 13.00 INR 1.10 H PTT (Actin FS) 33.8 Sodium 139 Potassium 4.8 Chloride 107 Carbon Dioxide 25 Anion Gap 7 L BUN 25.8 H Creatinine 1.3 Est GFR (CKD-EPI)AfAm 43.63 Est GFR (CKD-EPI)NonAf 37.64 Random Glucose 83 Lactic Acid Calcium 9.7 Phosphorus 2.7 Magnesium 2.3 Total Bilirubin 0.9 AST 32 ALT 22 Alkaline Phosphatase 99 Creatine Kinase 423 H Creatine Kinase Index 0.7 CK-MB (CK-2) 3.2 Troponin I < 0.02 Total Protein 7.3 Albumin 4.0 Urine Color Urine Appearance Urine pH Ur Specific [place] Urine Protein Urine Glucose (UA) Urine Ketones Urine Blood Urine Nitrite Urine Bilirubin Urine Urobilinogen Ur Leukocyte Esterase Urine WBC (Auto) Urine RBC (Auto) Urine Casts (Auto) U Epithel Cells (Auto) Urine Bacteria (Auto) 07/25/19 07/25/19 17:00 18:30 WBC RBC Hgb Hct MCV MCH MCHC RDW Plt Count MPV Absolute Neuts (auto) Neutrophils % Lymphocytes % Monocytes % Eosinophils % Basophils % Nucleated RBC % PT with INR INR PTT (Actin FS) Sodium Potassium Chloride Carbon Dioxide Anion Gap BUN Creatinine Est GFR (CKD-EPI)AfAm Est GFR (CKD-EPI)NonAf Random Glucose Lactic Acid 1.5 Calcium Phosphorus Magnesium Total Bilirubin AST ALT Alkaline Phosphatase Creatine Kinase Creatine Kinase Index CK-MB (CK-2) Troponin I Total Protein Albumin Urine Color Yellow Urine Appearance Clear Urine pH 5.0 Ur Specific [place] 1.020 Urine Protein Negative Urine Glucose (UA) Negative Urine Ketones 1+ H Urine Blood Negative Urine Nitrite Negative Urine Bilirubin Negative Urine Urobilinogen 0.2 Ur Leukocyte Esterase 1+ H Urine WBC (Auto) 4 Urine RBC (Auto) 3.6 Urine Casts (Auto) 3 U Epithel Cells (Auto) 6.6 Urine Bacteria (Auto) 53.3 ASSESSMENT/PLAN: 83 y.o. F PMH HTN, b/l hearing loss, shingles 1 yr ago presenting for weakness. #CVA -NIHSS 4 -C/w bed rest -Neuro checks q4h -Monitor on tele -F/u Brain MRI, brain & neck MRA, carotid U/S -F/u echo -EKG shows NSR -Atorvastatin 80mg PO daily -Aspirin 81mg PO daily -Neuro consulted (Dr. Aguilar) -Dementia workup: RPR, ESR, B12, folate, TSH -F/u speech & Swallow, PT -Fall precautions #Headache -Tylenol IV PRN #HTN -Holding anti HTN meds at this time #CKD -U/A: 1+ LE, 1+ ketones -IVF NS -Afebrile, monitor vitals -F/u AM bmp #FEN -IVF NS @75mL/ hr -Monitor lytes -NPO #DVT PPX -Heparin SQ #dispo -monitor on tele Visit type - Emergency Visit Emergency Visit: Yes ED Registration Date: 07/25/19 Care time: The patient presented to the Emergency Department on the above date and was hospitalized for further evaluation of their emergent condition. - New Patient This patient is new to me today: Yes Date on this admission: 07/26/19 - Critical Care Critical Care patient: No ATTENDING PHYSICIAN STATEMENT I saw and evaluated the patient. I reviewed the resident's note and discussed the case with the resident. I agree with the resident's findings and plan as documented. SUBJECTIVE: OBJECTIVE: ASSESSMENT AND PLAN:
[2019-07-25] MEDS: ASPIRIN COATED 81 MG TABLET.EC PO SCH (22:58)
[2019-07-25] MEDS ORDERED: HEPARIN NA (PORCINE) 5,000 UNITS/ML 1ML VIAL ONE (23:35)
[2019-07-25] MEDS: HEPARIN NA (PORCINE) 5,000 UNITS/ML 1ML VIAL SQ SCH (23:35)
[2019-07-25 23:45] LABS: CHOLESTEROL 169 mg/dL (50-200); HDL CHOLESTEROL 49 mg/dL (40-60); LDL CHOLESTEROL (ONLY SJRH) 100 mg/dL (5-100); TRIGLYCERIDES 100 mg/dL (0-150)
--- NOTE | 2019-07-26 00:11 | PN.NIHSS ---
NIH Stroke Scale - Last Known Well Date/Time & Onset Date Last Known Well: 07/23/19 - Initial Evaluation Level of consciousness: Alert Ask patient the month and their age: Answers one correctly Ask patient to open & close eyes; make fist and let go: Obeys both correctly Best gaze (horizontal eye movement): Normal Visual field testing: No visual field loss Facial paresis (Show teeth/raise eyebrows/close eyes tight): Normal symmetrical movement Motor Function: Left Arm: Normal Motor Function: Right Arm: Normal (extends arm 90 (or 45) degrees for 10 seconds without drift Motor Function: Left Leg: Normal (extends leg 30 degrees for 5 seconds without drift) Motor Function: Right Leg: Drift Limb Ataxia: No ataxia Sensory(Use pinprick test arms,legs,trunk,face/side to side): Normal Dysarthria (read several words): Mild to moderate slurring of words Extinction and Inattention: No abnormality
[2019-07-26 04:50] VITALS: BMI 28.0
[2019-07-26] MEDS: HEPARIN NA (PORCINE) 5,000 UNITS/ML 1ML VIAL SQ SCH ×3 (06:37→21:39)
[2019-07-26] MEDS ORDERED: DOCUSATE SODIUM 100 MG CAPSULE (FP) PO PRN (06:47)
[2019-07-26 07:05] LABS: BASO % 0.6 % (0-2.0); EOS % 2.1 % (0-4.5); HEMATOCRIT 35.2 % (32.4-45.2); HEMOGLOBIN 12.1 GM/dL (10.7-15.3); LYMPH % 18.4 % (8-40); MCH 32.3 pg (25.7-33.7); MCHC 34.5 g/dl (32.0-36.0); MEAN CELL VOLUME 93.9 fl (80-96); MEAN PLT VOLUME 8.7 fl (7.5-11.1); MONO % 12.6 % (3.8-10.2); NEUT % 66.3 % (42.8-82.8); PLATELET COUNT 218 K/MM3 (134-434); RBC 3.75 M/mm3 (3.60-5.2); RDW 12.9 % (11.6-15.6); WHITE BLOOD COUNT 7.2 K/mm3 (4.0-10.0)
[2019-07-26 07:37] LABS: ALBUMIN 3.4 g/dl (3.4-5.0); BILIRUBIN,TOTAL 1.1 mg/dL (0.2-1); BLOOD UREA NITROGEN 21.3 mg/dL (7-18); CALCIUM 8.6 mg/dL (8.5-10.1); CREATININE 1.2 mg/dL (0.55-1.3); MAGNESIUM 2.1 mg/dL (1.8-2.4); PHOSPHOROUS 3.2 mg/dL (2.5-4.9); POTASSIUM 4.2 mmol/L (3.5-5.1)
--- NOTE | 2019-07-26 09:25 | CONSULT ---
Admitting History and Physical - Smoking History Smoking history: Never smoked Have you smoked in the past 12 months: No - Alcohol/Substance Use Hx Alcohol Use: No History - Admission Reason For Visit: CEREBROVASCULAR ACCIDENT(CVA) - Hearing Hearing: Normal Speech Evaluation - Communication Primary Language: SL[place] Communication: Yes: Within Normal Limits, Simple Responses, Dysarthria (WFL), Hearing Deficit (bilateral [place]) - Speech Production Apraxia: No Able to Make Needs Known: Yes: WNL Intelligibility: Yes: WNL - Speech Characteristics Voice Loudness: Normal, Mildly Loud Voice Pitch: Yes: Normal Voice Phonatory-based Quality: Yes: Normal Speech Pattern: Normal Nasal Resonance: Normal Articulation: Yes: Precise Dysfluency: Yes: Tonic Rate of Speech: Intact Voice Comment: Elevated volume secondary to hearing status - Language/Auditory Comprehension Follows: Yes: 1 Stage Simple Commands (WFL), 2 Stage Simple Commands (WFL), Complex Commands Observation: Able to respond to yes/no queries: Yes, Yes/No Confusion: No, Comprehends Conversational Speech: Yes, Benefits from Slow Speech: No, Benefits from Repetiton: Yes ([place]), Benefits from Increased Volume of Speech: Yes ([place]) - Language/Verbal Expression Able to Respond to Simple Queries: Yes: WNL Able to Communicate Wants and Needs: Yes: WNL Functional Communication Status: Yes: WNL Aware of Errors: Yes Attempts to Correct Errors: Yes Use of Gestures: Yes Written Expression: Not examined Oral Expression: WFL Reading Comprehension: Not examined Calculations: Not examined Attention: Yes: Intact - Memory/Perception terminal operations supervisor Memory: Yes: WNL Short Term Memory: Yes: WNL - Swallow Evaluation/Bedside Assessment Current Nutritional Intake: NPO Oral Secretions: Yes: WFL Tracheostomy Present: No Patient on Ventilator: No Dentition: Yes: Adequate (fair to good condition) Facial Symmetry at Rest: Symmetrical Facial Symmetry on Retraction: Symmetrical Facial Movement: Controlled Sensation: Normal Facial Comment: [facility] for speech and swallowing purposes. Jaw Position: Closed at Rest Against Resistance Opening: Normal Against Resistance Closing: Normal Pucker Lips: Normal Smile: Normal Lips, Comment: [facility] for speech and swallowing purposes. Lingual Movement: Normal Lingual Speed of Movement: Normal Lingual Movement Strgth Against Opposition: Normal Lingual Movement Characteristics: Normal Lingual Comment: [facility] for speech and swallowing purposes. Soft Palate Description: Normal Color, Normal Arch Hard Palate Description: Normal Color, Normal Arch Bite Reflex: Present Velopharyngeal Movement: Normal Laryngeal Elevation: WFL Laryngeal Movement: Able to Palpate Needs Assistance: Yes Rate of Intake: WFL Bolus Size: WFL Labial Seal: WFL Chewing: WFL Oral Prep Time: WFL A-P Transit: WFL Timing of Swallow: WFL Coughing/Throat Clear: No Change in Voice: No Other Findings/Remarks: 83 yo female seen at bedside for swallow eval to rule out dysphagia. Pt is verbal A&Ox2 cooperative. Pt presents with moderate bilateral hearing loss. Admitted to [facility] for AMS and right leg weakness. Vocal quality is WNL with good airway protection. Current diet: NPO pending swallow eval Pt given po trials of puree and soft solids without assistance revealed good acceptance, adequate but increased mastication for chewable solids with adequate bolus transport. Pharyngeal swallow appears timely with no cough or changes in respiration. Thin liquid trials via cup and straw without assistance were unremarkable for dysphagia and/ or aspiration at this time. Recommendations - Speech Evaluation, Impression/Plan Impression: 83 yo female presents mild oral phase dysphagia for chewable solids with no s/s of aspiration for solids or liquids at this time. Speech is WNL but pt needs elevated volume and visual prompts secondary to hearing status. Station Examiner Goals: tolerate the least restrictive diet without s/s of aspiration. Short Term Goals: tolerate dysphagia whole with thin liquids without s/s of aspiration - Dysphagia Impressions/Plan Swallowing Skills: Impaired Dysphagia Impressions: Minimal Impairment, Risk of Aspiration *Silent aspiration: cannot be R/O at bedside Dysphagia Treatment Plan: Small Bites, Safe Rate, 1/2 tsp. at a time, Elevate HOB during feed, Other (monitor nutritional intake and pulmonary status.) Dysphagia Evaluation Summary: trial dysphagia whole with thin liquids as tolerated. Observe standard aspiration precautions. Medication can be given whole with water. Verbally prompt patient for slow pace. Results given verbally to clinic charge nurse and to PCP via chart SCREW MACHINE OPERATOR to follow up for diet tolerance. - Recommendations Diet Consistency: Dysphagia Whole Medication Administration: Whole with water Liquids: Thin Liquids
--- NOTE | 2019-07-26 10:11 | PN ---
Progress Note (short form) - Note Progress Note: HPI: Pt with significant hearing loss. Still feels R arm numbness and has chronic weakness. PE: GEN: NAD, awkae, alert, hard of hearing HEENT: EOMI, KARISSA, sclera anicteric MMM Neck: No JVD LUNGS: CTA b/l CARD: RRR no murmurs ABD: NT/ND, + BS, soft NEURO: Mild R sided facial palsy Dysarthria REst of CN in tact RUE strength 4/5 with dull sensation compared to LUE and b/l lower ext. CBC, BMP 07/26/19 05:45 07/26/19 05:45 Active Medications Acetaminophen (Ofirmev Injection -) 1,000 mg IVPB Q6H PRN PRN Reason: HEADACHE Aspirin (Ecotrin -) 81 mg PO DAILY [facility] Last Admin: 07/26/19 10:56 Dose: 81 mg Atorvastatin Calcium (Lipitor -) 80 mg PO HS [facility] Docusate Sodium (Colace -) 100 mg PO TID PRN PRN Reason: CONSTIPATION Heparin Sodium (Porcine) (Heparin -) 5,000 unit SQ TID [facility] Last Admin: 07/26/19 14:12 Dose: 5,000 unit Ranitidine HCl (Zantac -) 150 mg PO BID [facility] Last Admin: 07/26/19 10:56 Dose: 150 mg Tamsulosin HCl (Flomax -) 0.4 mg PO DAILY@0830 [facility] Last Admin: 07/26/19 10:56 Dose: 0.4 mg A/P L sided occipital CVA HTN Chronic hearing loss --A1c and Lipid panel ordered to be reviewed --PT order placed --Speech and swallow to evaluate and make recommendations --Carotid U/S with atherosclerotic disease and no hemodynamic significance --EChocardiogram pending --MRI without contrast ordered --Neurology consulted --Continue with ASA 81mg qdaily --Lipitor 80mg HS PO --Continue Flomax and Tylenol FEN: Fluids: None Electrolytes: no abnormalities Nutrition: Awaiting speech and swallow eval PPX: DVT - Heparin TID SQ GI - Not indicated Dispo: Will likely need STR Case discussed with Dr. Velez and updated son, Mitch, on dispo plan Riccardo Villasenor DO - IM PGY-3 <Riccardo Villasenor - Last Filed: 07/26/19 20:29> - Note Progress Note: Attending Addendum I have seen and examined the indicated patient independently/along with the resident team. I have personally verified all mcdonough exam findings and historical components. I have personally interpreted all diagnostics indicated per todays orders and reviewed interpretation of indicated subspecialty services. This patient meets a high level of medical complexity and warrants inpatient admission to avoid decompensation and worsening of the indicated illness. 45 minutes have been spent in the completion of this admission. S: Agree with historical findings as outlined in resident documentation regarding history of present illness. No progressive neurologic findings, hemodynamically stable and afebrile. No further complaints. Pending MRI. Echocardiogram noted, carotid duplex noted. Further plan and subjective information as per resident note. 10 system ROS completed and is negative aside from indicated issues in the resident/attending history of present illness and full documentation. Past Medical History and Past Surgical Histories reviewed in depth; per resident note Social history is reviewed; per resident note; Complete family history is reviewed with patient and is non-pertinent aside from the indicated issues outlined above. No sudden history of cardiac . O: All vital signs reviewed per ER records and are as per EMR NAD, AAO, Resting in bed; mentating at baseline per prior encounters NC AT EOMI PERRLA Neck supple, trachea midline, no esther LN RRR s1/2 Lungs CTAB, w/ sym expansion NT ND +BS No skin breakdown or rashes noted CN2-12 wnl, no new focal deficits noted Muscle tone normal, no deficits in motor function or strength noted Normal mood, appropriate behavior, average insight A/P: Patient seen, examined, and discussed in depth with resident team. Problem list reviewed per resident note and agree with their discussion aside from as supplemented by myself below. Problems include: Left-sided occipital CP, hypertension, chronic hearing loss. Follow-up A1c and lipid panel. Continue aspirin, continue statin. Follow-up with neurology consult. Continue neurochecks and seizure precautions. Once all imaging is returned, I do not anticipate a endurance is to discharge with it being in less than 24 to 48 hours anticipated. 45 minutes was spent in the ongoing care and discussion of this patient. No issues noted on telemetry. Continue to monitor on the floor; agree with plan as documented per resident note. <Ferdinand Velez - Last Filed: 07/27/19 07:05>
[2019-07-26] MEDS: TAMSULOSIN HCL 0.4 MG CAP PO SCH (10:56)
[2019-07-26] MEDS: ASPIRIN COATED 81 MG TABLET.EC PO SCH (10:56)
[2019-07-26] MEDS: RANITIDINE HCL 150 MG TABLET (FP) PO SCH ×2 (10:56→21:39)
--- NOTE | 2019-07-26 12:14 | EKG ---
Test Reason : Blood Pressure : / mmHG Vent. Rate : 074 BPM Atrial Rate : 074 BPM P-R Int : 208 ms QRS Dur : 062 ms QT Int : 368 ms P-R-T Axes : 061 -07 024 degrees QTc Int : 408 ms NORMAL SINUS RHYTHM NORMAL ECG WHEN COMPARED WITH ECG OF 28-JAN-2017 22:37, NO SIGNIFICANT CHANGE WAS FOUND Confirmed by BONNY CRUZ MD ([id number]) on 07/26/2019 12:13:49 PM Referred By: Confirmed By:BONNY CRUZ MD
--- NOTE | 2019-07-26 15:14 | ECHO ---
Name: JOSE ALMANZAR Exam:Adult Echocardiogram Study Date: 07/26/2019 09:56 AM Age: 83 yrs Reason For Study: CVA Height: 63 in Weight: 175 lb BSA: 1.8 m2 MMode/2D Measurements & Calculations IVSd: 1.0 cm Ao root diam: 2.0 cm LVIDd: 3.5 cm LA dimension: 2.2 cm LVIDs: 2.6 cm LVPWd: 0.84 cm EDV(Teich): 52.2 ml LVOT diam: 2.0 cm ESV(Teich): 23.9 ml Doppler Measurements & Calculations MV E max umer: 59.7 cm/sec Ao V2 max: 118.1 cm/sec MV A max umer: 94.6 cm/sec Ao max P.6 mmHg MV E/A: 0.63 MV dec time: 0.17 sec KAYKAY(V,D): 2.2 cm2 LV V1 max P.9 mmHg PA V2 max: 95.0 cm/sec LV V1 max: 85.9 cm/sec PA max P.6 mmHg Med Peak E' Umer: 4.7 cm/sec Med E/e': 12.8 Lat Peak E' Umer: 8.5 cm/sec Lat E/e': 7.0 Procedure A two-dimensional transthoracic echocardiogram with color flow and Doppler was performed. Left Ventricle The left ventricular size, thickness and function are normal. The left ventricular ejection fraction is normal. E/A reversal consistent with but not diagnostic of poor LV compliance. The left ventricular w all motion is normal. Right Ventricle The right ventricle is not well visualized. Atria Normal left and right atrial size and function. Mitral Valve There is mild mitral valve thickening. There is no mitral valve stenosis. There is trace to mild mitr al regurgitation. Tricuspid Valve There is mild tricuspid valve thickening. There is no tricuspid stenosis. There was insufficient TR d etected to calculate RV systolic pressure. Aortic Valve The aortic valve is normal in structure and function. No hemodynamically significant valvular aortic stenosis. No aortic regurgitation is present. Pulmonic Valve The pulmonic valve is not well visualized. Great Vessels The aortic root is normal size. Pericardium/Pleura There is no pericardial effusion. Interpretation Summary The left ventricular size, thickness and function are normal The left ventricular ejection fraction is normal. The aortic valve is normal in structure and function. The left ventricular wall motion is normal. There was insufficient TR detected to calculate RV systolic pressure. The right ventricle is not well visualized. E/A reversal consistent with but not diagnostic of poor LV compliance There is trace to mild mitral regurgitation. MD Jordan Galo 07/26/2019 03:14 PM
--- NOTE | 2019-07-26 18:18 | CON.NEURO ---
Consult - Alcohol/Substance Use Hx Alcohol Use: No - Smoking History Smoking history: Never smoked Have you smoked in the past 12 months: No Home Medications - Allergies Allergies/Adverse Reactions: Allergies Allergy/AdvReac Type Severity Reaction Status Date / Time No Known Allergies Allergy Verified 01/28/17 13:52 - Home Medications Home Medications: Ambulatory Orders Amlodipine Besylate [Norvasc -] 2.5 mg PO DAILY #30 tablet 02/04/17 Ranitidine [Zantac -] 150 mg PO BID #60 tablet 02/04/17 Tamsulosin HCl [Flomax -] 0.4 mg PO DAILY@0830 #30 tab 02/04/17 Docusate Sodium [Colace -] 100 mg PO TID PRN 02/09/17 Physical Exam-Neuro Vital Signs: Vital Signs Temperature 98.4 F 07/26/19 15:41 Pulse Rate 90 07/26/19 15:41 Respiratory Rate 18 07/26/19 15:41 Blood Pressure 121/52 L 07/26/19 15:41 O2 Sat by Pulse Oximetry (%) 98 07/26/19 09:00 Labs: CBC, BMP 07/26/19 05:45 07/26/19 05:45 INR, PTT INR 1.10 (0.83-1.09) H 07/25/19 17:00 Assessment/Plan cc Right sided hemiparesis HPI 83 year old female hsitory of HTN, Hearing loss, shingles. Patient came with confusion and right arm and leg weaknes.s Paitent also have difficulty speaking. Patient has mri showed left special programs director stroke. Patient is not takign aspirin or statin . Patient has carotid ultrasound and it was unremarkable. PAST MEDICAL HISTORY: as per HPI PAST SURGICAL HISTORY: lap vannesa, renal lithotripsy Social History: lives alone Smoking: denies Alcohol:denies Drugs: denies Allergies No Known Allergies Allergy (Verified 01/28/17 13:52) HOME MEDICATIONS: Home Medications Medication Instructions Recorded Amlodipine Besylate [Norvasc -] 2.5 mg PO DAILY #30 tablet 02/04/17 Ranitidine [Zantac -] 150 mg PO BID #60 tablet 02/04/17 Tamsulosin HCl [Flomax -] 0.4 mg PO DAILY@0830 #30 tab 02/04/17 Docusate Sodium [Colace -] 100 mg PO TID PRN 02/09/17 ROS,FHS,SH reviewed in chart NEUROLOGICAL EXAMIANTION Alert follow simple command, very hard of hearing, neck is supple vss bp 139/89 mild right sided facial palsy and dysarthric speech mild right sided hemiapresis ct showed left special programs director stroke mri confirmed left special programs director stroke Assessment/Plan 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
[2019-07-26] MEDS: ATORVASTATIN CA 40 MG TABLET (FP) PO SCH (21:39)
[2019-07-27] MEDS ORDERED: ACETAMINOPHEN 325 MG TABLET (FP) PO ONE (00:56)
[2019-07-27] MEDS ORDERED: ACETAMINOPHEN 325 MG TABLET (FP) ONE (06:06)
[2019-07-27] MEDS: HEPARIN NA (PORCINE) 5,000 UNITS/ML 1ML VIAL SQ SCH ×3 (06:46→21:19)
[2019-07-27] MEDS: ASPIRIN COATED 81 MG TABLET.EC PO SCH (09:22)
[2019-07-27] MEDS: TAMSULOSIN HCL 0.4 MG CAP PO SCH (09:22)
[2019-07-27] MEDS: RANITIDINE HCL 150 MG TABLET (FP) PO SCH ×2 (09:22→21:20)
--- NOTE | 2019-07-27 09:28 | PN ---
Addendum entered and electronically signed by Riccardo Villasenor, RESIDENT 07/27/19 09:32: No labs ordered today due to normalization of labs on multiple draws. Original Note: Progress Note (short form) - Note Progress Note: HPI: Pt with significant hearing loss. No acute events. No events on telemetry. Still feels R arm numbness and has chronic weakness. PE: (unchanged from previous day) GEN: NAD, awake, alert, hard of hearing HEENT: EOMI, KARISSA, sclera anicteric MMM Neck: No JVD LUNGS: CTA b/l CARD: RRR no murmurs ABD: NT/ND, + BS, soft NEURO: Mild R sided facial palsy Mild dysarthria REst of CN in tact RUE strength 4/5 with dull sensation compared to LUE and b/l lower ext. CBC, BMP 07/26/19 05:45 07/26/19 05:45 Active Medications Acetaminophen (Ofirmev Injection -) 1,000 mg IVPB Q6H PRN PRN Reason: HEADACHE Aspirin (Ecotrin -) 81 mg PO DAILY [facility] Last Admin: 07/27/19 09:22 Dose: 81 mg Atorvastatin Calcium (Lipitor -) 80 mg PO HS [facility] Last Admin: 07/26/19 21:39 Dose: 80 mg Docusate Sodium (Colace -) 100 mg PO TID PRN PRN Reason: CONSTIPATION Heparin Sodium (Porcine) (Heparin -) 5,000 unit SQ TID [facility] Last Admin: 07/27/19 06:46 Dose: 5,000 unit Ranitidine HCl (Zantac -) 150 mg PO BID [facility] Last Admin: 07/27/19 09:22 Dose: 150 mg Tamsulosin HCl (Flomax -) 0.4 mg PO DAILY@0830 [facility] Last Admin: 07/27/19 09:22 Dose: 0.4 mg Microbiology 07/25/19 18:30 Urine - Urine Clean Catch Urine Culture - Final Normal Urogenital Annalisa A/P L sided occipital CVA HTN emergency Chronic hearing loss --A1c 5.5%; lipid panel at goal --PT note reviewed: recommended STR due to impairment of walking --Carotid U/S with atherosclerotic disease and no hemodynamic significance --Echocardiogram reviewed --MRI without contrast ordered --Neurology consulted --Continue with ASA 81mg qdaily --Lipitor 80mg HS PO --Continue Flomax and Tylenol FEN: Fluids: None Electrolytes: no abnormalities Nutrition: Dysphagia whole thin liquids per S&S PPX: DVT - Heparin TID SQ GI - Not indicated Dispo: Will need STR Case discussed with Dr. Agustin Villasenor, DO - IM PGY-3 <Riccardo Villasenor - Last Filed: 07/27/19 09:30> - Note Progress Note: I have seen and examined the indicated patient independently/along with the resident team. I have personally verified all mcdonough exam findings and historical components. I have personally interpreted all diagnostics indicated per todays orders and reviewed interpretation of indicated subspecialty services. This patient meets a high level of medical complexity and warrants inpatient stay to avoid decompensation and worsening of the indicated illness. S: Agree with historical findings as outlined in resident documentation regarding history of present illness. 10 system ROS completed and is negative aside from indicated issues in the resident/attending history of present illness and full documentation. O:All vital signs reviewed per ER records and are as per EMR NAD, AAO, Resting in bed NC AT EOMI PERRLA Neck supple, trachea midline, no esther LN RRR s1/2 Lungs CTAB, w/ sym expansion NT ND +BS No skin breakdown or rashes noted CN2-12 wnl, no new focal deficits noted Muscle tone normal, no deficits in motor function or strength noted Normal mood, appropriate behavior, average insight All diagnostics reviewed A/P: Patient seen, examined, and discussed in depth with resident team. Problem list reviewed per resident note and agree with their discussion aside from as supplemented by myself below Overall the dizziness is improved. The vertebral A. issues noted. The patient is fixated on the issue regarding theirhearing, telling me that it is the only thing bothering them; son confirms that this is a longstanding issue without any acute changes. She does not have hearing aids and would benefit from an audiometry referral. We are planning DC. [place]. Will confirm with administration and the facility. <Ferdinand Velez - Last Filed: 07/28/19 13:19>
--- NOTE | 2019-07-27 10:29 | PN ---
Progress Note, TOLL MECHANIC - Note Progress Note: Per EMR- cc Right sided hemiparesis HPI 83 year old female hsitory of HTN, Hearing loss, shingles. Patient came with confusion and right arm and leg weaknes.s Paitent also have difficulty speaking. Patient has mri showed left electroplater automatic stroke. Patient is not taking aspirin or statin . Patient has carotid ultrasound and it was unremarkable. On Dys whole/thin liquid pt is oriented, quite CHITIMACHA, with expressive/receptive language deficits c/w Aphasia sec to ACCESS SERVICES LIBRARIAN infarcts. Pt follows simple commands but not complex, possibly y/n confusion although hearing loss complicates reliability of assessment. Word errors/anomia in expressive speech. Tolerating diet well. Imp- No Dysarthria. Aphasia. CHITIMACHA Excellent prognosis for improved language function. D/C plan to STR near pt's son. Suggest family purchase personal amplifier to maximize communication for SDL and Rehab.
--- NOTE | 2019-07-27 14:23 | PN ---
Progress Note (short form) - Note Progress Note: HPI 83 year old female hsitory of HTN, Hearing loss, shingles. Patient came with confusion and right arm and leg weaknes.s Paitent also have difficulty speaking. Patient has mri showed left dough catcher stroke. Patient is not takign aspirin or statin . Patient has carotid ultrasound and it was unremarkable. 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
[2019-07-27] MEDS: ATORVASTATIN CA 40 MG TABLET (FP) PO SCH (21:20)
[2019-07-28 06:09] VITALS: PULSE 75
[2019-07-28] MEDS: HEPARIN NA (PORCINE) 5,000 UNITS/ML 1ML VIAL SQ SCH (06:30)
--- NOTE | 2019-07-28 07:08 | DS ---
Physical Exam: SUBJECTIVE: Patient seen and examined OBJECTIVE: Vital Signs Period Temp Pulse Resp BP Sys/Deleon Pulse Ox Last 24 Hr 97.9 F-98.6 F 74-94 17-20 117-141/54-75 94-97 PHYSICAL EXAM GENERAL: The patient is awake, alert, and fully oriented, in no acute distress. HEAD: Normal with no signs of trauma. EYES: PERRL, extraocular movements intact, sclera anicteric, conjunctiva clear. ENT: Ears normal, nares patent, oropharynx clear without exudates, moist mucous membranes. NECK: Trachea midline, full range of motion, supple. LUNGS: Breath sounds equal, clear to auscultation bilaterally, no wheezes, no crackles, no accessory muscle use. HEART: Regular rate and rhythm, S1, S2 without murmur, rub or gallop. ABDOMEN: Soft, nontender, nondistended, normoactive bowel sounds, no guarding, no rebound, no hepatosplenomegaly, no masses. EXTREMITIES: 2+ pulses, warm, well-perfused, no edema. NEUROLOGICAL: Cranial nerves II through XII grossly intact. Normal speech, gait not observed. PSYCH: Normal mood, normal affect. SKIN: Warm, dry, normal turgor, no rashes or lesions noted. LABS HOSPITAL COURSE: Date of Admission:07/25/19 Date of Discharge: 07/28/19 <Riccardo Villasenor - Last Filed: 07/28/19 07:08> Physical Exam: SUBJECTIVE: Patient seen and examined OBJECTIVE: Vital Signs Period Temp Pulse Resp BP Sys/Deleon Pulse Ox Last 24 Hr 97.9 F-98.6 F 7494 17-20 117-141/54-75 94-95 PHYSICAL EXAM GENERAL: The patient is awake, alert, and fully oriented, in no acute distress. HEAD: Normal with no signs of trauma. EYES: PERRL, extraocular movements intact, sclera anicteric, conjunctiva clear. ENT: Ears normal, nares patent, oropharynx clear without exudates, moist mucous membranes. NECK: Trachea midline, full range of motion, supple. LUNGS: Breath sounds equal, clear to auscultation bilaterally, no wheezes, no crackles, no accessory muscle use. HEART: Regular rate and rhythm, S1, S2 without murmur, rub or gallop. ABDOMEN: Soft, nontender, nondistended, normoactive bowel sounds, no guarding, no rebound, no hepatosplenomegaly, no masses. EXTREMITIES: 2+ pulses, warm, well-perfused, no edema. NEUROLOGICAL: Cranial nerves II through XII grossly intact. Normal speech, gait not observed. PSYCH: Normal mood, normal affect. SKIN: Warm, dry, normal turgor, no rashes or lesions noted. LABS HOSPITAL COURSE: Date of Admission:07/25/19 Date of Discharge: 07/28/19 Minutes to complete discharge: 33 <Ferdinand Velez - Last Filed: 07/28/19 13:22> Discharge Summary Problems reviewed: Yes Reason For Visit: CEREBROVASCULAR ACCIDENT(CVA) Current Active Problems Right upper extremity numbness (Acute) Stroke (Acute) Weakness (Acute) - Home Medications Comprehensive Discharge Medication List: Ambulatory Orders Ranitidine [Zantac -] 150 mg PO BID #60 tablet 02/04/17 Tamsulosin HCl [Flomax -] 0.4 mg PO DAILY@0830 #30 tab 02/04/17 Docusate Sodium [Colace -] 100 mg PO TID PRN 02/09/17 Aspirin Coated [Ecotrin -] 81 mg PO DAILY tablet.ec 07/28/19 Atorvastatin Ca [Lipitor] 80 mg PO HS tablet 07/28/19 <Riccardo Villasenor - Last Filed: 07/28/19 07:08> Problems reviewed: Yes Current Active Problems Right upper extremity numbness (Acute) Stroke (Acute) Weakness (Acute) - Home Medications Comprehensive Discharge Medication List: Ambulatory Orders Ranitidine [Zantac -] 150 mg PO BID #60 tablet 02/04/17 Tamsulosin HCl [Flomax -] 0.4 mg PO DAILY@0830 #30 tab 02/04/17 Docusate Sodium [Colace -] 100 mg PO TID PRN 02/09/17 Aspirin Coated [Ecotrin -] 81 mg PO DAILY tablet.ec 07/28/19 Atorvastatin Ca [Lipitor] 80 mg PO HS tablet 07/28/19 <Ferdinand Velez - Last Filed: 07/28/19 13:22> Condition: Guarded - Instructions Diet, Activity, Other Instructions: You were seen here for a stroke. You were evaluated by neurology and had multiple tests done which confirmed the stroke and did not show any other abnormalities of your heart and arteries. You were evaluated by physical therapy and will be leaving to go to rehab. Diet: Dysphagia whole with thin liquids Please follow-up with Dr. Aguilar, or another neurologist 1 week after your rehab. Please follow-up with a primary care physician, one has been provided for you if you do not have one. Referrals: Ross Aguilar MD [Staff Physician] - Todd Joya MD [Staff Physician] - Disposition: RESIDENTIAL FACILITY This patient is new to me today: No Emergency Visit: Yes ED Registration Date: 07/25/19 Care time: The patient presented to the Emergency Department on the above date and was hospitalized for further evaluation of their emergent condition. Critical Care patient: No - Discharge Referral Referred to [facility] No <Ferdinand Velez - Last Filed: 07/28/19 13:22> ATTENDING PHYSICIAN STATEMENT I saw and evaluated the patient. I reviewed the resident's note and discussed the case with the resident. I agree with the resident's findings and plan as documented. SUBJECTIVE: OBJECTIVE: ASSESSMENT AND PLAN: <Riccardo Villasenor - Last Filed: 07/28/19 07:08> ATTENDING PHYSICIAN STATEMENT I saw and evaluated the patient. I reviewed the resident's note and discussed the case with the resident. I agree with the resident's findings and plan as documented. Remains stable with no issues overnight; feels well and is looking forward to discharge. <Ferdinand Velez - Last Filed: 07/28/19 13:22>
[2019-07-28] MEDS: ASPIRIN COATED 81 MG TABLET.EC PO SCH (09:29)
[2019-07-28] MEDS: TAMSULOSIN HCL 0.4 MG CAP PO SCH (09:29)
[2019-07-28] MEDS: RANITIDINE HCL 150 MG TABLET (FP) PO SCH (09:29)
--- NOTE | 2019-07-28 10:25 | PN ---
Progress Note, PHYS THER - Note Progress Note: Plan is for STR. Imp- No Dysarthria. Aphasia. TANGIRNAQ Excellent prognosis for improved language function. D/C plan to STR near pt's son. Suggest family purchase personal amplifier to maximize communication for SDL and Rehab.
--- NOTE | 2019-07-28 10:29 | PN ---
Progress Note (short form) - Note Progress Note: 83 year old female hsitory of HTN, Hearing loss, shingles. Patient came with confusion and right arm and leg weaknes.s Paitent also have difficulty speaking. Patient has mri showed left volunteer services manager stroke. Patient is not takign aspirin or statin . Patient has carotid ultrasound and it was unremarkable. Patient had mri of brain done and there is NEUROLOGICAL EXAMIANTION Alert follow simple command, very hard of hearing, neck is supple vss bp 139/89 mild right sided facial palsy and dysarthric speech mild right sided hemiapresis ct showed left volunteer services manager stroke mri confirmed left volunteer services manager stroke Assessment/Plan Left volunteer services manager stroke with mild right hemiparesis and dysarthric speech, Carotid ultrasound is unremarkable Plan: continue aspirin and statin - speech consult apprecaited -clinically stable - PT, Dvt prophylaxis - patient is being discharged home. thanks for consult Ross Aguilar MD
[2019-07-28 11:09] VITALS: BP 111/88; TEMP 98
== END 2019-07-28 12:47 | DRG 65 ==
LOC: JER 14:50 → JERBED 19:50 → J4W 07-26 01:15
PROVIDERS: ADMIT Internal Medicine; ATTEND Internal Medicine
DX: I63.9 Cerebral infarction, unspecified (principal); G81.91 Hemiplegia, unspecified affecting right dominant side; I16.1 Hypertensive emergency; I12.9 Hypertensive chronic kidney disease with stage 1 through stage 4 chronic kidney disease, or unspecified chronic kidney disease; N18.9 Chronic kidney disease, unspecified; H91.93 Unspecified hearing loss, bilateral; R29.704 NIHSS score 4; R51 Headache; R13.11 Dysphagia, oral phase
CPT/HCPCS: 36415; 70450-TC; 70544-TC; 70551-TC; 71045-TC-FY; 80053; 80061; 81003; 82550; 82553; 82607; 82746; 83036; 83605; 83721; 83735; 84100; 84443; 84484; 85025; 85610; 85730; 86593; 87086; 93005; 93010; 93306-TC; 93880-TC; 97116-GP; 97161-GP; 99284-25; J1644; J7030